=== PATIENT | male | born 1945 | race Caucasian/White ===

== ENCOUNTER → 2016-11-06 | Outpatient (CLI) | payer MEDICARE ==
--- NOTE | 2016-11-06 09:48 | BD ---
EXAMINATION TYPE: MG DEXA axial skeleton. DATE OF EXAM: 11/06/2016 8:28 AM COMPARISON: NONE CLINICAL HISTORY: Height: 70.5 IN Weight: 240 LBS FRAX RISK QUESTIONS: Alcohol (3 or more units per day): NO Family History (Parent hip fracture): YES MOTHER Glucocorticoids (More than 3mos): NO (Ex: prednisone, prednisolone, methylprednisolone, dexamethasone, and hydrocortisone). History of Fracture in Adulthood: NO Secondary Osteoporosis: 1. Type 1 Diabetes: NO 2. Hyperthyroidism: NO 3. Menopause before 45: 4. Malnutrition: NO 5. Chronic liver disease: NO Rheumatoid Arthritis: NO Current Tobacco Use: NO RISK FACTORS HISTORY OF: Active: YES Diet low in dairy products/other sources of calcium: YES MEDICATIONS: Additional Medications: VIT D, HCTZ, MULTI VIT, CRESTOR, MAGNESIUM, OMEPRAZOLE, EXAM MEASUREMENTS: Bone mineral densitometry was performed using the [employer] System. Bone mineral density as measured about the Lumbar spine is: ----- L1-L4(G/cm2): 1.062 T Score Values are as follows: ----- L2: -1.8 ----- L3: -0.5 ----- L4: -0.6 ----- L1-L4: -1.0 Bone mineral density BASELINE Bone mineral density about the R hip (g/cm2): 0.929 Bone mineral density about the L hip (g/cm2): 0.829 T Score values are as follows: -----R Neck: -0.8 -----L Neck: -1.5 -----R Intertrochanter: 0.7 -----L Intertrochanter: 0.4 Bone mineral density BASELINE IMPRESSION: Osteopenia (T Score between -2.5 and -1 as noted by T score values There is slightly increased risk of fracture and the patient may be considered for treatment. Re-Screen 1-2 years. NOTE: T-SCORE=SD OF THE YOUNG ADULT MEAN.
== END | disposition home or self-care (01) ==
LOC: RADBDWWP 08:00
PROVIDERS: ATTEND Family Medicine
DX: M85.80 Other specified disorders of bone density and structure, unspecified site (principal)
CPT/HCPCS: 77080

== ENCOUNTER → 2017-01-14 | Outpatient (CLI) | payer MEDICARE ==
--- NOTE | 2017-01-14 15:58 | NM ---
EXAMINATION TYPE: NM parathyroid w/spect DATE OF EXAM: 01/14/2017 COMPARISON: NONE HISTORY: Hypercalcemia TECHNIQUE: Following administration of 25.4 mCi Tc99m Sestamibi. Anterior projection images of the neck and ches t were obtained 10 minutes and 3 hours post injection. SPECT images of the neck and chest were obtai marcie and reconstructed in three axes. FINDINGS: Thyroid tracer washout: Delayed images demonstrate near-complete tracer washout from the thyroid. Parathyroid uptake: None. The two-hour delayed images do not demonstrate any focal abnormal persisten t uptake in the region of the parathyroid glands to suggest parathyroid adenoma. Normal uptake: There is physiological tracer uptake in the myocardium, liver, salivary glands, and th yroid gland. IMPRESSION: Normal parathyroid imaging study. No evidence for mediastinal uptake to suggest mediastinal parathyro id adenoma
== END | disposition home or self-care (01) ==
LOC: RADNMMAIN 11:28
PROVIDERS: ATTEND Otolaryngology
DX: E83.52 Hypercalcemia (principal)
CPT/HCPCS: 83970; 78071; A9500

== ENCOUNTER 2017-01-31 12:06 | Day surgery (SDC) | payer MEDICARE ==
[2017-01-31 13:45] LABS: ALT 35 U/L (21-72); AST 31 U/L (17-59); Alkaline Phosphatase 92 U/L (38-126); Anion Gap 14 mmol/L; Blood Urea Nitrogen 15 mg/dL (9-20); Carbon Dioxide 23 mmol/L (22-30); Chloride 105 mmol/L (98-107); Glucose 95 mg/dL (74-99); Non-African American GFR(MDRD) >60 (>60 ml/min/1.73 sqM); Potassium 4.1 mmol/L (3.5-5.1); Sodium 142 mmol/L (137-145); Total Bilirubin 1.4 mg/dL (0.2-1.3); Total Protein 7.6 g/dL (6.3-8.2)
[2017-01-31 14:24] VITALS: PULSE 74; TEMP 97.8
[2017-01-31 14:29] VITALS: BP 164/74; RESP 16
--- NOTE | 2017-01-31 14:34 | US ---
EXAMINATION TYPE: US FNA thyroid DATE OF EXAM: 01/31/2017 COMPARISON: NONE HISTORY: Thyroid nodule, E04.1 Maximal barrier technique was utilized. Ultrasound using sterile technique. The skin overlying the no dule was localized with ultrasound and the overlying skin prepped and draped. Lidocaine used for loca l anesthesia. 5 passes with a 25-gauge needle were made into the nodule under ultrasound guidance. As pirate specimen submitted to cytology. Following the procedure hemostasis achieved. No immediate comp lication IMPRESSION: Status post ultrasound-guided fine-needle aspiration of thyroid nodule, pathology pending .
== END 2017-01-31 14:05 | disposition home or self-care (01) ==
LOC: RADPROMAIN 12:06
PROVIDERS: ATTEND Otolaryngology
DX: E04.1 Nontoxic single thyroid nodule (principal); J45.909 Unspecified asthma, uncomplicated; E83.52 Hypercalcemia; K21.9 Gastro-esophageal reflux disease without esophagitis; E78.00 Pure hypercholesterolemia, unspecified; Z87.891 Personal history of nicotine dependence; Z79.899 Other long term (current) drug therapy
CPT/HCPCS: 10022; 36415; 76942; 80053; 82306; 83970; 88173; 88305

== ENCOUNTER → 2018-07-25 | Outpatient (CLI) | payer MEDICARE ==
--- NOTE | 2018-07-25 12:25 | US ---
EXAMINATION TYPE: US abdomen complete DATE OF EXAM: 07/25/2018 COMPARISON: NONE CLINICAL HISTORY: R10.11 upper right quadrant pain. Right flank pain for 1.5 years. History of cholel ithiasis EXAM MEASUREMENTS: Liver Length: 15.8 cm Gallbladder Wall: 0.3 cm CBD: 0.5 cm Spleen: 8.6 cm Right Kidney: 11.3 x 5.3 x 5.0 cm Left Kidney: 10.9 x 5.5 x 4.6 cm Technical limitations due to large amount of overlying bowel content Pancreas: Obscured by bowel gas Liver: There is increased echogenicity of the hepatic parenchyma with diminished visualization of th e portal triads most commonly relating to hepatic steatosis and limiting evaluation for underlying he patic masses. Gallbladder: multiple stones Evidence for sonographic Sneed's sign: no CBD: appears wnl as visualized Spleen: appears wnl as visualized Right Kidney: no evidence of hydronephrosis Left Kidney: no evidence of hydronephrosis Upper IVC: wnl Abd Aorta: portions obscured by overlying bowel The intrahepatic portion of the IVC and proximal abdominal aorta are within normal limits. There is no evidence of cholelithiasis. Common bile duct is unremarkable. The visualized portions of the arce creas are homogenous. The spleen is unremarkable. Kidneys are symmetric and free of hydronephrosis. No renal lesions are seen. IMPRESSION: 1. Cholelithiasis without sonographic evidence of acute cholecystitis. 2. Sonographic findings most compatible with hepatic steatosis appearing moderate in degree.
== END ==
LOC: RADUSWWP 10:17
PROVIDERS: ATTEND Surgery
DX: K80.20 Calculus of gallbladder without cholecystitis without obstruction (principal)
CPT/HCPCS: 76700

== ENCOUNTER → 2018-09-05 | Day surgery (SDC) | payer MEDICARE ==
[2018-09-03 11:09] VITALS: BMI 32.5
[~2018-09-05] MED LIST: BUPIVACAIN-EPI 0.5%-1:200,000 30 ML VIAL SQ ONE; DEXAMETHASONE SOD PHOSPHATE 10 MG/ML 1 ML VIAL IV ONE; GLYCOPYRROLATE 0.2 MG/ML 2 ML VIAL ONE; HEPARIN SODIUM,PORCINE 5,000 UNIT/ML 1 ML VIAL SQ ONE; HYDROcodone/APAP 5-325MG 1 EACH TAB PO ONE; HYDROcodone/APAP 5-325MG 1 EACH TAB PO PRN; HYDROmorphone 0.5 MG/0.5 ML SYRINGE IVP PRN; LACTATED RINGERS 1,000 ML IV ONE; LACTATED RINGERS 1,000 ML IV SCH; LIDOCAINE 1% 20 ML VIAL (10MG/ML) FOR IV START INTRADERMA PRN; LIDOCAINE 1% INJ 10MG/ML (20 ML MDV) ONE; MIDAZOLAM (PF) 2 MG/2 ML VIAL IV PRN; MIDAZOLAM 2 MG/2 ML VIAL ONE; NALOXONE 0.4 MG/ML 1 ML VIAL IV PRN; NEOSTIGMINE 1 MG/ML 10 ML VIAL ONE; ONDANSETRON 4 MG/2 ML VIAL IVP ONE; PROPOFOL 10 MG/ML 20 ML VIAL IV ONE; ROCURONIUM BROMIDE 10 MG/ML 10 ML VIAL IV ONE; SCOPOLAMINE 1.5MG/72HR PATCH TRANSDERM ONE; SUCCINYLCHOLINE CHLORIDE 100 MG/5 ML SYR IV ONE; ceFAZolin IN SWFI 2 GM/20 ML SYRINGE IVP ONE; ePHEDrine SULFATE/0.9% NACL/PF 50 MG/5 ML SYRINGE IV ONE; fentaNYL (PF) 50 MCG/ML 2 ML AMP ONE
--- NOTE | 2018-09-05 08:14 | P.PCN ---
Date of Procedure: 09/05/18 Procedure(s) Performed: PREOPERATIVE DIAGNOSIS: Colon cancer screening POSTOPERATIVE DIAGNOSIS: Diverticulosis PROCEDURE: Colonoscopy ANESTHESIA: MAC SURGEON: Pete Richmond M.D. SPECIMENS: None ENDOSCOPIC PROCEDURE: The patient was placed on the endoscopy table in the left decubitus position. The Olympus colonoscope was inserted into the anus and passed under direct visualization to the base of the cecum. The appendiceal orifice was visualized. From that point the scope was slowly withdrawn inspecting all surfaces carefully. There were no neoplastic inflammatory or polypoid lesions throughout the cecum, ascending, transverse, descending, sigmoid and rectum. There was mild left-sided diverticulosis noted. Digital rectal examination was normal. The patient was taken to the recovery room in stable condition per anesthesia guidelines. RECOMMENDATIONS: increase fiber. Follow-up colonoscopy in 10 years.
--- NOTE | 2018-09-05 10:32 | P.GSHP ---
History of Present Illness H&P Date: 09/05/18 Chief Complaint: Chronic cholecystitis Patient here today for laparoscopic cholecystectomy. Patient is a history of right-sided back and flank pain for the last year and a half. Patient underwent a CAT scan March 2017 showing multiple gallstones. No nausea or vomiting. Denies any change in the color of his skin urine or stool. Past Medical History Past Medical History: Asthma, GERD/Reflux, Hyperlipidemia, Hypertension, Thyroid Disorder Additional Past Medical History / Comment(s): HAD BLOOD CLOT IN "MINOR VEIN" History of Any Multi-Drug Resistant Organisms: None Reported Past Surgical History: Appendectomy, Hernia Repair Additional Past Surgical History / Comment(s): PARATHYROID REMOVED, COLONOSCOPY 2011- POLYP Past Anesthesia/Blood Transfusion Reactions: No Reported Reaction Smoking Status: Former smoker - Past Family History Sister(s) Family Medical History: Cancer Medications and Allergies Home Medications Medication Instructions Recorded Confirmed Type Omeprazole [PriLOSEC] 20 mg PO AC-BRKFST 10/21/14 09/05/18 History Aspirin [Adult Low Dose Aspirin EC] 81 mg PO DAILY 01/31/17 09/03/18 History Calcium Carbonate [Calcium] 600 mg PO DAILY 09/03/18 09/05/18 History Cholecalciferol (Vitamin D3) 2,000 unit PO DAILY 09/03/18 09/05/18 History [Vitamin D3] Inhaler 2 puff INHALATION DIRECTED PRN 09/03/18 09/05/18 History Lisinopril-Hctz 10-12.5 mg 1 tab PO DAILY 09/03/18 09/05/18 History [Zestoretic 10-12.5] Pravastatin Sodium [Pravachol] 20 mg PO DAILY 09/03/18 09/05/18 History Allergies Allergy/AdvReac Type Severity Reaction Status Date / Time No Known Allergies Allergy Verified 09/05/18 10:23 Surgical - Exam Vital Signs Temp Pulse Resp BP Pulse Ox 97.9 F 99 16 184/89 94 L 09/05/18 10:20 09/05/18 10:20 09/05/18 10:20 09/05/18 10:20 09/05/18 10:20 Physical exam: General: Well-developed, well-nourished HEENT: Normocephalic, sclerae nonicteric Abdomen: Nontender, nondistended Extremities: No edema Neuro: Alert and oriented Assessment and Plan (1) Chronic cholecystitis Narrative/Plan: Will proceed with laparoscopic cholecystectomy this time. Risks of bleeding, infection, bile leak, bile duct injury, retained common bile duct stone, trocar injury, conversion to an open procedure, hernia, anesthesia related complications were reviewed. The patient understands and wishes to proceed. Current Visit: Yes Status: Acute Code(s): K81.1 - CHRONIC CHOLECYSTITIS SNOMED Code(s): 36564842
[2018-09-05 12:10] VITALS: TEMP 97.7
--- NOTE | 2018-09-05 12:18 | P.OP ---
Date of Procedure: 09/05/18 Procedure(s) Performed: PREOPERATIVE DIAGNOSIS: Chronic cholecystitis POSTOPERATIVE DIAGNOSIS: Same PROCEDURE: Laparoscopic cholecystectomy SURGEON: Basilio EBL: Minimal see anesthesia record ANESTHESIA: Gen. COMPLICATIONS: None OPERATIVE PROCEDURE: The patient was brought and placed on the operating room table in the supine position. The patient was placed under general anesthesia at that time. The abdomen was prepped and draped in the usual sterile fashion. A small vertical infraumbilical incision was made. The fascia was grasped with the Vandana forceps. The fascia was retracted anteriorly. The Veress needle was advanced into the peritoneal cavity. The saline drop test was normal. Insufflation took place up to 15 mmHg. A 5 mm optical trocar was advanced and the peritoneal cavity. 2 additional 5 mm trochars were placed in the right upper quadrant under direct visualization. A 12 mm trocar was advanced into the epigastric incision site. The gallbladder was retracted superiorly and laterally. The peritoneum overlying the infundibulum was bluntly dissected. The patient's cystic duct was visualized. The junction between the cystic duct common and hepatic duct was identified. The cystic duct was then divided after placement of 3 12 mm clips on the patient's side and one on the specimen side. The cystic artery was identified and clipped as well. A small vessel was seen along the gallbladder fossa and clipped as well. The gallbladder was then removed from the liver bed using electrocautery. The gallbladder was then removed from the epigastric trocar site with an Endo Catch bag. The gallbladder fossa was irrigated with saline. There was no evidence of any bleeding or biliary drainage seen. The fascia at the 12 millimeter site was closed using a Armando-Arthur 0 Vicryl stitch. The trochars were then removed. The skin at all 4 sites was closed using a 4-0 Monocryl stitch. Skin glue was utilized on the incision sites. At the end of this procedure the sponge and needle counts were correct. DISPOSITION: Stable to the recovery room
[2018-09-05 13:43] VITALS: RESP 18
[2018-09-05 14:17] VITALS: BP 122/66; PULSE 70
== END ==
LOC: OR 09:59
PROVIDERS: ATTEND Surgery
DX: K80.10 Calculus of gallbladder with chronic cholecystitis without obstruction (principal); J45.909 Unspecified asthma, uncomplicated; K21.9 Gastro-esophageal reflux disease without esophagitis; E78.5 Hyperlipidemia, unspecified; I10 Essential (primary) hypertension; E89.2 Postprocedural hypoparathyroidism; Z79.82 Long term (current) use of aspirin; Z79.899 Other long term (current) drug therapy; Z87.891 Personal history of nicotine dependence; Z86.010 Personal history of colon polyps
CPT/HCPCS: 88304; 47562; J2250; J1644; J1100; J2710; J2405; J2001; J3010; J0330; J2704; J0690

== ENCOUNTER → 2020-01-04 | Outpatient (CLI) | payer MEDICARE | END | disposition home or self-care (01) | LOC: LABWHC1 14:08 | PROVIDERS: ATTEND Internal Medicine Gastroenterology | DX: Z11.59 Encounter for screening for other viral diseases (principal) ==

== ENCOUNTER 2020-01-06 08:42 | Day surgery (SDC) | payer MEDICARE ==
[2020-01-05 09:19] VITALS: BMI 31.6
[~2020-01-06 08:42] MED LIST changes: -BUPIVACAIN-EPI 0.5%-1:200,000 30 ML VIAL SQ ONE; -DEXAMETHASONE SOD PHOSPHATE 10 MG/ML 1 ML VIAL IV ONE; -GLYCOPYRROLATE 0.2 MG/ML 2 ML VIAL ONE; -HEPARIN SODIUM,PORCINE 5,000 UNIT/ML 1 ML VIAL SQ ONE; -HYDROcodone/APAP 5-325MG 1 EACH TAB PO ONE; -HYDROcodone/APAP 5-325MG 1 EACH TAB PO PRN; -HYDROmorphone 0.5 MG/0.5 ML SYRINGE IVP PRN; -LACTATED RINGERS 1,000 ML IV ONE; +LIDOCAINE 1% (10MG/ML) FOR IV START INTRADERMA PRN; -LIDOCAINE 1% 20 ML VIAL (10MG/ML) FOR IV START INTRADERMA PRN; -LIDOCAINE 1% INJ 10MG/ML (20 ML MDV) ONE; -MIDAZOLAM (PF) 2 MG/2 ML VIAL IV PRN; -MIDAZOLAM 2 MG/2 ML VIAL ONE; -NALOXONE 0.4 MG/ML 1 ML VIAL IV PRN; -NEOSTIGMINE 1 MG/ML 10 ML VIAL ONE; -ONDANSETRON 4 MG/2 ML VIAL IVP ONE; -PROPOFOL 10 MG/ML 20 ML VIAL IV ONE; -ROCURONIUM BROMIDE 10 MG/ML 10 ML VIAL IV ONE; -SCOPOLAMINE 1.5MG/72HR PATCH TRANSDERM ONE; -SUCCINYLCHOLINE CHLORIDE 100 MG/5 ML SYR IV ONE; -ceFAZolin IN SWFI 2 GM/20 ML SYRINGE IVP ONE; -ePHEDrine SULFATE/0.9% NACL/PF 50 MG/5 ML SYRINGE IV ONE; -fentaNYL (PF) 50 MCG/ML 2 ML AMP ONE
[2020-01-06 09:19] VITALS: RESP 16; TEMP 97.3
[2020-01-06] MEDS ORDERED: IV FLUID CONTINUATION 1,000 ML IV ONE (09:20)
[2020-01-06] MEDS ORDERED: LIDOCAINE 1% (10MG/ML) FOR IV START INTRADERMA ONE (09:20)
[2020-01-06] MEDS ORDERED: PROPOFOL 10 MG/ML 20 ML VIAL IV ONE (09:41)
[2020-01-06] MEDS ORDERED: MIDAZOLAM 2 MG/2 ML VIAL ONE (09:41)
--- NOTE | 2020-01-06 09:58 | P.PCN ---
Date of Procedure: 01/06/20 Procedure(s) Performed: BRIEF HISTORY: Patient is a 74-year-old pleasant male scheduled for an elective colonoscopy as a part of variation of prior history of colon polyps. Last colonoscopy was 5 years ago and was noted to have a tubular adenoma. PROCEDURE PERFORMED: Colonoscopy snare polypectomy. PREOPERATIVE DIAGNOSIS: History of colon polyps. IV sedation per Anesthesia. PROCEDURE: After informed consent was obtained, the patient, was brought into the endoscopy unit. IV sedation was administered by Anesthesia under continuous monitoring. Digital rectal examination was normal. Initially the Olympus CF-160 flexible video colonoscope was then inserted in the rectum, gradually advanced into the cecum without any difficulty. Careful examination was performed as the scope was gradually being withdrawn. Ileocecal valve and the appendiceal orifice were visualized and appeared normal. Prep was excellent. In the base of the cecum there was a 1 cm polyp that was removed by snare polypectomy Mucosa of the cecum, ascending colon, transverse colon, appeared normal. In the distal transverse colon there was a 5 mm sessile polyp removed by snare polypectomy. Rest of the descending colon, sigmoid colon, and rectum appeared normal. Scattered sigmoid diverticulosis seen. Retroflexion was performed in the rectum and no lesions were seen. The patient tolerated the procedure well. IMPRESSION: 1 cm broad-based cecal polyp is post polypectomy 5 mm sessile transverse colon polyp status post snare polypectomy Scattered sigmoid diverticulosis RECOMMENDATIONS: Findings of this examination were discussed with the patient as well as his family. He was advised to follow with the biopsy results. If the biopsy shows an adenoma he can have a repeat colonoscopy in 3 years..
[2020-01-06 10:14] VITALS: BP 114/71; PULSE 55
== END 2020-01-06 10:38 | disposition home or self-care (01) ==
LOC: ORWHC2ENDO 08:42
PROVIDERS: ATTEND Internal Medicine Gastroenterology
DX: Z12.11 Encounter for screening for malignant neoplasm of colon (principal); D12.0 Benign neoplasm of cecum; K57.30 Diverticulosis of large intestine without perforation or abscess without bleeding; Z86.010 Personal history of colon polyps; Z79.82 Long term (current) use of aspirin; Z79.899 Other long term (current) drug therapy; I10 Essential (primary) hypertension; E78.5 Hyperlipidemia, unspecified; Z86.718 Personal history of other venous thrombosis and embolism; J45.909 Unspecified asthma, uncomplicated; E89.2 Postprocedural hypoparathyroidism; K21.9 Gastro-esophageal reflux disease without esophagitis; K57.92 Diverticulitis of intestine, part unspecified, without perforation or abscess without bleeding
CPT/HCPCS: 88305; 45385; J2250; J2704

== ENCOUNTER → 2020-08-24 | Outpatient (CLI) | payer MEDICARE ==
--- NOTE | 2020-08-24 10:43 | XR ---
EXAMINATION TYPE: XR shoulder complete RT DATE OF EXAM: 08/24/2020 COMPARISON: NONE HISTORY: Pain TECHNIQUE: Shoulder examined in 3 views FINDINGS: The humeral head articulates with the glenoid. The acromio-clavicular junction is normal. No acute fractures or dislocations are evident. A follow up study can be performed 7-10 days from acute trauma for continued pain. IMPRESSION: 1. Normal three-view right Shoulder
== END | disposition home or self-care (01) ==
LOC: RADXRYALE 10:19
PROVIDERS: ATTEND Physician Assistant Medical
DX: M25.511 Pain in right shoulder (principal)

== ENCOUNTER → 2021-07-18 | Outpatient (CLI) | payer MEDICARE ==
--- NOTE | 2021-07-18 11:27 | XR ---
EXAMINATION TYPE: XR lumbosacral spine 5 views DATE OF EXAM: 07/18/2021 Comparison: None Clinical History: 75 year old R202, G629 PARESTHESIA, POLYNEUROPATHY Findings: Mild degenerative disc disease throughout the lumbar spine. Slightly accentuated lower lumbar lordosi s. Facet arthropathy mid to lower lumbar spine. Vertebral body heights are preserved and alignment is maintained. Apical scarring calcifications throughout the mid and lower abdominal aorta with suggest ion of a mild aneurysm up to 3.1 cm. Impression: 1. Hypertrophic facet arthropathy mid to lower lumbar spine. No vertebral compression collapse or mal alignment. Mild multilevel degenerative disc disease. 2. Possible AAA at 3.1 cm. Consider screening abdominal aortic ultrasound.
== END | disposition home or self-care (01) ==
LOC: RADXRYALE 09:34
PROVIDERS: ATTEND Physician Assistant Medical
DX: M47.897 Other spondylosis, lumbosacral region (principal); M51.37 Other intervertebral disc degeneration, lumbosacral region
CPT/HCPCS: 72110

== ENCOUNTER → 2022-01-03 | Outpatient (CLI) | payer MEDICARE ==
--- NOTE | 2022-01-03 08:22 | US ---
EXAMINATION TYPE: US duplex aorta DATE OF EXAM: 01/03/2022 COMPARISON: CLINICAL HISTORY: R93.1 ABN FINDING ON DX IMAGING OF HEART AND COR C. HTN controlled with meds EXAM MEASUREMENTS: Abdominal Aorta: Proximal: 2.3 x 2.0 cm Mid: 1.8 x 1.9 cm Distal: 2.1 x 2.5 cm Bifurcation: Right= 1.0 x 1.1 cm Left= 0.9 x 1.1 cm No AAA visualized at time of scan. Distal aorta appears slightly ectatic. IMPRESSION: Ectasia of the distal aorta with no diagnostic evidence of aneurysm.
== END | disposition home or self-care (01) ==
LOC: RADUSWWP 07:27
PROVIDERS: ATTEND Family Medicine
DX: I77.811 Abdominal aortic ectasia (principal)
CPT/HCPCS: 93979

== ENCOUNTER → 2022-06-18 | Outpatient (CLI) | payer MEDICARE ==
--- NOTE | 2022-06-18 11:57 | XR ---
EXAMINATION TYPE: XR chest 2V DATE OF EXAM: 06/18/2022 COMPARISON: NONE HISTORY: Cough. TECHNIQUE: Frontal and lateral views of the chest are obtained. FINDINGS: There is left basilar horizontal increased linear opacity on frontal view left well-seen o n lateral view. Suggestion of underlying emphysematous change bilaterally with increased retrosternal airspace. Right lung remains clear. The cardiac silhouette size is within normal limits. The osseo us structures are intact. Cholecystectomy clips are noted on lateral view. IMPRESSION: Left basilar opacity could reflect acute infiltrate and/or atelectasis.
== END | disposition home or self-care (01) ==
LOC: RADXRYALE 11:21
PROVIDERS: ATTEND Physician Assistant Medical
DX: R05.9 Cough, unspecified (principal)
CPT/HCPCS: 71046

== ENCOUNTER → 2022-06-26 | Outpatient (CLI) | payer MEDICARE ==
--- NOTE | 2022-06-26 19:34 | US ---
EXAMINATION TYPE: US thyroid st tissue head/neck DATE OF EXAM: 06/26/2022 COMPARISON: None CLINICAL HISTORY: 76-year-old male L04.0 ACUTE LYMPHADENITIS OF FACE, HEAD AND R59.0 LOCALIZED. Enla rged lymph nodes. TECHNIQUE: Multiple sonographic images of the bilateral necks are obtained for assessment of cervical lymphadenopathy. FINDINGS: Sales Agent notes: No abnormalities visualized. The provided images showed no abnormally enlarged lymph nodes are otherwise any discrete mass. IMPRESSION: No discrete cervical lymphadenopathy or neck mass appreciated by ultrasound. Clinical follow-up recom mended. If any enlarging palpable area is detected, the patient can be rescanned.
== END | disposition home or self-care (01) ==
LOC: RADUSWWP 15:10
PROVIDERS: ATTEND Family Medicine
DX: L04.0 Acute lymphadenitis of face, head and neck (principal)
CPT/HCPCS: 76536

== ENCOUNTER → 2022-07-18 | Outpatient (CLI) | payer MEDICARE ==
--- NOTE | 2022-07-18 15:35 | XR ---
EXAMINATION TYPE: XR chest 2V DATE OF EXAM: 07/18/2022 COMPARISON: 06/18/2022 INDICATION: Cough and asthma shortness of breath TECHNIQUE: Frontal and lateral views of the chest are obtained. FINDINGS: The heart size is normal. The pulmonary vasculature is normal. The lungs are clear. There is flattening the diaphragms suggestive for COPD. IMPRESSION: 1. No acute pulmonary process. 2. COPD
== END | disposition home or self-care (01) ==
LOC: RADXRYALE 14:27
PROVIDERS: ATTEND Physician Assistant
DX: J44.9 Chronic obstructive pulmonary disease, unspecified (principal); J45.20 Mild intermittent asthma, uncomplicated
CPT/HCPCS: 71046

== ENCOUNTER 2022-11-27 13:52 | Emergency (ER) | payer MEDICARE ==
[2022-11-27 13:56] VITALS: TEMP 97.6
[2022-11-27 14:55] LABS: Appearance,Urine Clear (Clear); Bilirubin,Urine Negative (Negative); Blood,Urine Negative (Negative); Color,Urine Yellow; Glucose,Urine (UA) Negative (Negative); Ketones,Urine Negative (Negative); Leukocyte Esterase,Urine Large (Negative); Mucus,Urine Occasional /hpf; Nitrite,Urine Negative (Negative); PH, Urine 5.5 (5.0-8.0); Protein,Urine Trace (Negative); RBC,Urine 2 /hpf (0-5); Specific Gravity,Urine 1.025 (1.001-1.035); Urobilinogen,Urine <2.0 mg/dL (<2.0); WBC,Urine 24 /hpf (0-5)
[2022-11-27] MEDS ORDERED: SODIUM CHLORIDE 0.9% 1,000 ML IV STA (15:21)
--- NOTE | 2022-11-27 15:26 | ED ---
Abdominal Pain HPI - General Chief Complaint: Abdominal Pain Stated Complaint: abd pain Time Seen by Provider: 11/27/22 15:09 Source: patient, RN notes reviewed, old records reviewed Mode of arrival: ambulatory Limitations: no limitations - History of Present Illness Initial Comments: This is a 77-year-old male to the ER today. Presents today for evaluation of abdominal pain he does have occasional history of abdominal pain this pain is been going on for about 4-5 days patient presents with who is at bedside. Patient told his about the abdominal pain here in the ER and was sent to here by his for further evaluation management patient has no fevers no travel history no sick contacts. MD Complaint: abdominal pain -: days(s) (5) Location: LLQ Radiation: L flank Migration to: suprapubic Severity: moderate Severity scale (1-10): 4 Quality: cramping, sharp Consistency: intermittent Improves With: nothing Worsens With: nothing Associated Symptoms: nausea Treatments Prior to Arrival: other (0) - Related Data Home Medications Medication Instructions Recorded Confirmed Omeprazole [PriLOSEC] 20 mg PO DAILY 10/21/14 11/27/22 Aspirin [Adult Low Dose Aspirin EC] 81 mg PO DAILY 01/31/17 11/27/22 Calcium Carbonate [Calcium] 600 mg PO DAILY 09/03/18 11/27/22 Donepezil HCl [Aricept] 10 mg PO DAILY 01/05/20 11/27/22 flaxseed oiL [Flaxseed Oil] 1,000 mg PO HS 01/05/20 11/27/22 Albuterol Sulfate [Albuterol 1 - 2 puff INHALATION RT-Q6H PRN 11/27/22 11/27/22 Sulfate Hfa] Cholecalciferol [Vitamin D3 (25 50 mcg PO DAILY 11/27/22 11/27/22 Mcg = 1000 Iu)] Lisinopril-Hctz 20-12.5 mg 1 tab PO DAILY 11/27/22 11/27/22 [Zestoretic 20-12.5] Magnesium 200 mg PO DAILY 11/27/22 11/27/22 Multivit-Min/FA/Lycopen/Lutein 1 tab PO DAILY 11/27/22 11/27/22 [Centrum Silver Men Tablet] Rosuvastatin Calcium [Crestor] 40 mg PO HS 11/27/22 11/27/22 Previous Rx's Medication Instructions Recorded Amoxic-Pot Clav 875-125Mg 1 tab PO Q12HR #20 tablet 11/27/22 [Augmentin 875-125] Allergies Allergy/AdvReac Type Severity Reaction Status Date / Time shingles booster vaccine AdvReac Unknown Rash/Hives Uncoded 11/27/22 16:49 Review of Systems ROS Statement: Those systems with pertinent positive or pertinent negative responses have been documented in the HPI. ROS Other: All systems not noted in ROS Statement are negative. Past Medical History Past Medical History: Asthma, GERD/Reflux, Hyperlipidemia, Hypertension, Thyroid Disorder Additional Past Medical History / Comment(s): HAD BLOOD CLOT IN "MINOR VEIN" History of Any Multi-Drug Resistant Organisms: None Reported Past Surgical History: Appendectomy, Hernia Repair Additional Past Surgical History / Comment(s): PARATHYROID REMOVED, COLONOSCOPY 2011-08 POLYP Past Anesthesia/Blood Transfusion Reactions: No Reported Reaction Past Psychological History: No Psychological Hx Reported Smoking Status: Never smoker Past Alcohol Use History: None Reported Past Drug Use History: None Reported - Past Family History Sister(s) Family Medical History: Cancer General Exam Limitations: no limitations General appearance: alert, in no apparent distress Head exam: Present: atraumatic, normocephalic, normal inspection Eye exam: Present: normal appearance, PERRL, EOMI. Absent: scleral icterus, conjunctival injection, periorbital swelling ENT exam: Present: normal exam, mucous membranes moist Neck exam: Present: normal inspection. Absent: tenderness, meningismus, lymphadenopathy Respiratory exam: Present: normal lung sounds bilaterally. Absent: respiratory distress, wheezes, rales, rhonchi, stridor Cardiovascular Exam: Present: regular rate, normal rhythm, normal heart sounds. Absent: systolic murmur, diastolic murmur, rubs, gallop, clicks GI/Abdominal exam: Present: soft, tenderness, normal bowel sounds. Absent: distended, guarding, rebound, rigid Extremities exam: Present: normal inspection, full ROM, normal capillary refill. Absent: tenderness, pedal edema, joint swelling, calf tenderness Back exam: Present: normal inspection Neurological exam: Present: alert, oriented X3, CN II-XII intact Psychiatric exam: Present: normal affect, normal mood Skin exam: Present: warm, dry, intact, normal color. Absent: rash Course Vital Signs 11/27/22 11/27/22 13:54 17:13 Temperature 97.6 F Pulse Rate 76 61 Respiratory 20 18 Rate Blood Pressure 146/79 147/75 O2 Sat by Pulse 98 100 Oximetry - Reevaluation(s) Reevaluation #1: 11/27/22 18:47 Medical record is reviewed Reevaluation #2: 11/27/22 18:47 Patient has improved abdominal pain here in the ER Reevaluation #3: 11/27/22 18:47 Patient informed results and questions answered Reevaluation #4: 11/27/22 18:47 Was pt. sent in by a medical professional or institution? @ -no Did you speak to anyone other than the patient for history? @ -no Did you review nursing and triage notes? @ -agree Were old charts reviewed? @ -no Differential Diagnosis? @ -abdominal pain EKG interpreted by me (3pts min.)? @ -no X-rays interpreted by me (1pt min.)? @ -no CT interpreted by me (1pt min.)? @ -no U/S interpreted by me (1pt. min.)? @ -no What testing was considered but not performed? (CT, X-rays, U/S, labs)? Why? @ -no What meds were considered but not given? Why? @ -no Did you discuss the management of the patient with other professionals? @ -no Did you reconcile home meds? @ -yes Was smoking cessation discussed for >3mins.? @ -no Was critical care preformed (if so, how long)? @ -no Were there social determinants of health that impacted care today? How? (Homelessness, low income, unemployed, alcoholism, drug addiction, transportation, low edu. Level, literacy, decrease access to med. care, group home, rehab)? @ -no Was there de-escalation of care discussed even if they declined? (Discuss DNR or withdrawal of care, Hospice)? @ -no What co-morbidities impacted this encounter? (DM, HTN, Smoking, COPD, CAD, C ancer, CVA,, sleep apnea, morbid obesity) @ -no Was patient admitted / discharged? @ -dc Undiagnosed new problem with uncertain prognosis? @ -no Drug Therapy requiring intensive monitoring for toxicity (Heparin, Nitro, Insulin, Cardizem)? @ -no Were any procedures done? @ -no Diagnosis/symptom? @ -abdominal pain Acute, or Chronic, or Acute on Chronic? @ -acute Uncomplicated (without systemic symptoms) or Complicated (systemic symptoms)? @ -uncomplicated Side effects of treatment? @ -no Exacerbation, Progression, or Severe Exacerbation] @ -no Poses a threat to life or bodily function? @ -no Reevaluation #5: 11/27/22 18:48 Differential Abdominal Pain Men: Appendicitis, cholecystitis, diverticulosis, ischemic bowel, pancreatitis, hepatitis, UTI, gastroenteritis, AAA, incarcerated hernia, bowel obstruction, constipation, inflammatory bowel, hepatitis, peptic ulcer disease, splenic infarction, perforated viscus, testicular torsion, this is not meant to be an all-inclusive list Medical Decision Making - Medical Decision Making 77 male DF for evaluation of abdominal pain positive for colitis on computed tomography scan with epiploic appendicitis. Possibly mild urinary tract infection. Patient will be covered in treated for UTI and colitis, pain is controlled and can be discharged home - Lab Data Result diagrams: 11/27/22 15:37 11/27/22 15:37 Lab Results 11/27/22 11/27/22 11/27/22 Range/Units 14:03 15:37 15:37 WBC 9.2 (3.8-10.6) k/uL RBC 4.91 (4.30-5.90) m/uL Hgb 14.9 (13.0-17.5) gm/dL Hct 43.2 (39.0-53.0) % MCV 87.9 (80.0-100.0) fL MCH 30.3 (25.0-35.0) pg MCHC 34.5 (31.0-37.0) g/dL RDW 13.4 (11.5-15.5) % Plt Count 299 (150-450) k/uL MPV 7.1 Neutrophils % 68 % Lymphocytes % 22 % Monocytes % 6 % Eosinophils % 1 % Basophils % 0 % Neutrophils # 6.3 (1.3-7.7) k/uL Lymphocytes # 2.0 (1.0-4.8) k/uL Monocytes # 0.6 (0-1.0) k/uL Eosinophils # 0.1 (0-0.7) k/uL Basophils # 0.0 (0-0.2) k/uL Sodium 136 L (137-145) mmol/L Potassium 4.0 (3.5-5.1) mmol/L Chloride 98 (98-107) mmol/L Carbon Dioxide 27 (22-30) mmol/L Anion Gap 11 mmol/L BUN 21 H (9-20) mg/dL Creatinine 1.18 (0.66-1.25) mg/dL Est GFR (CKD-EPI)AfAm 68 (>60 ml/min/1.73 sqM) Est GFR (CKD-EPI)NonAf 59 (>60 ml/min/1.73 sqM) Glucose 132 H (74-99) mg/dL Calcium 9.2 (8.4-10.2) mg/dL Total Bilirubin 1.8 H (0.2-1.3) mg/dL AST 32 (17-59) U/L ALT 24 (4-49) U/L Alkaline Phosphatase 61 (38-126) U/L Total Protein 7.7 (6.3-8.2) g/dL Albumin 4.2 (3.5-5.0) g/dL Amylase 60 (30-110) U/L Lipase 106 (23-300) U/L Urine Color Yellow Urine Appearance Clear (Clear) Urine pH 5.5 (5.0-8.0) Ur Specific [place] 1.025 (1.001-1.035) Urine Protein Trace H (Negative) Urine Glucose (UA) Negative (Negative) Urine Ketones Negative (Negative) Urine Blood Negative (Negative) Urine Nitrite Negative (Negative) Urine Bilirubin Negative (Negative) Urine Urobilinogen <2.0 (<2.0) mg/dL Ur Leukocyte Esterase Large H (Negative) Urine RBC 2 (0-5) /hpf Urine WBC 24 H (0-5) /hpf Urine Mucus Occasional H (None) /hpf - Radiology Data Radiology results: report reviewed (CT abdomen and pelvis is positive for colitis and epiploic appendicitis), image reviewed Disposition Clinical Impression: Colitis, Diverticulitis, Epiploic appendagitis Disposition: HOME SELF-CARE Condition: Good Instructions (If sedation given, give patient instructions): Diverticulitis (ED), Epiploic Appendagitis (ED) Prescriptions: Amoxic-Pot Clav 875-125Mg [Augmentin 875-125] 1 tab PO Q12HR #20 tablet Is patient prescribed a controlled substance at d/c from ED?: No Referrals: Bryan Banda DO [Primary Care Provider] - 1-2 days Time of Disposition: 16:45
[2022-11-27 15:52] LABS: Basophils % (A) 0 %; Eosinophils # (A) 0.1 k/uL (0-0.7); Eosinophils % (A) 1 %; HCT 43.2 % (39.0-53.0); HGB 14.9 gm/dL (13.0-17.5); Lymphocytes % (A) 22 %; MCH 30.3 pg (25.0-35.0); MCHC 34.5 g/dL (31.0-37.0); MCV 87.9 fL (80.0-100.0); Mean Platelet Volume 7.1; Monocytes # (A) 0.6 k/uL (0-1.0); Monocytes % (A) 6 %; Neutrophils # (A) 6.3 k/uL (1.3-7.7); Neutrophils % (A) 68 %; Platelet Count 299 k/uL (150-450); RBC 4.91 m/uL (4.30-5.90); RDW 13.4 % (11.5-15.5); WBC 9.2 k/uL (3.8-10.6)
[2022-11-27 16:07] LABS: Albumin 4.2 g/dL (3.5-5.0); Calcium 9.2 mg/dL (8.4-10.2); Total Bilirubin 1.8 mg/dL (0.2-1.3); Total Protein 7.7 g/dL (6.3-8.2)
--- NOTE | 2022-11-27 16:14 | CT ---
EXAMINATION TYPE: CT abdomen pelvis wo con DATE OF EXAM: 11/27/2022 COMPARISON: 03/17/2014 HISTORY: 77-year-old male lower abd/pelvic pain CT DLP: 1293.4 mGycm. Automated exposure control for dose reduction was used. TECHNIQUE: Contiguous axial scanning of the abdomen and pelvis without IV contrast. Coronal and sagit ana reconstructions performed. FINDINGS: Heart normal size without pericardial effusion. Small calcified granulomas at the left base with itzel lar strandy scarring. Some underlying emphysematous changes noted in bronchial wall thickening compat ible with COPD. Moderate size hiatal hernia involving a third of the stomach and lower chest. Noncontrast evaluation of the liver and adrenal glands, kidneys, spleen, and pancreas show no gross a bnormal body. Cholecystectomy clips. No dilated small bowel, free fluid, or free air. Moderate atherosclerotic calcifications abdominal aorta and mild within the common iliac arteries. Mi ld fusiform ectasia infrarenal abdominal aorta to 2.6 cm. No mesenteric or retroperitoneal lymphadenopathy. There is sigmoid diverticulosis. Prominent pericolonic fat stranding with central fat density noted s panning approximately 10.2 cm along the right lateral margin of the mid sigmoid colon. While this is located along the colon, no significant colonic wall thickening is appreciated here. In addition, a s econd nodular area of fat stranding measuring 2.2 cm is present along the anterior wall of the descen ding colon. Bladder partially distended. Prostate gland enlargement 5.1 cm wide. No abnormal fluid collection in the pelvis or pelvic lymphadenopathy seen. Bones: Mild degenerative change of the hips. Mild degenerative change at the SI joints. [facility] in the l ower thoracic spine. IMPRESSION: 1. Sigmoid diverticulosis. There is moderate fat stranding spanning 10.2 cm adjacent to the mid sigmo id colon. Given the ovoid contour and central fat density, this may be an atypical appearance of epip loic appendagitis. Inflammation relating to acute diverticulitis is not entirely excluded but conside red less likely given the lack of any inflammatory bowel wall thickening. Short interval follow-up if no improvement with conservative therapy. 2. A second 2.2 cm nodular area of pericolonic fat stranding along the descending colon. Possible sec ond focus of epiploic appendagitis. Again, consider short interval follow-up to reassess. 3. Moderate-sized hiatal hernia. Mild prostatomegaly at 5.1 cm wide.
[2022-11-27] MEDS ORDERED: AMOXIC-POT CLAV 875MG STARTER PACK 2 TAB BTL PO STA (16:45)
[2022-11-27] MEDS ORDERED: ACET/COD 300 MG/30 MG STARTER PACK 6 TAB BTL PO STA (16:45)
[2022-11-27 17:32] VITALS: BP 147/75; PULSE 61; RESP 18
== END 2022-11-27 17:15 | disposition home or self-care (01) ==
LOC: EC 13:52
DX: K52.9 Noninfective gastroenteritis and colitis, unspecified (principal); K57.92 Diverticulitis of intestine, part unspecified, without perforation or abscess without bleeding; K63.89 Other specified diseases of intestine; J45.909 Unspecified asthma, uncomplicated; K21.9 Gastro-esophageal reflux disease without esophagitis; E78.5 Hyperlipidemia, unspecified; I10 Essential (primary) hypertension; E07.9 Disorder of thyroid, unspecified; Z88.7 Allergy status to serum and vaccine; Z90.49 Acquired absence of other specified parts of digestive tract; Z79.82 Long term (current) use of aspirin; Z79.899 Other long term (current) drug therapy
CPT/HCPCS: 36415; 74176; 80053; 81001; 82150; 83690; 85025; 87086; 96360; 99284

== ENCOUNTER → 2024-01-22 | Outpatient (CLI) | payer MEDICARE ==
--- NOTE | 2024-01-22 14:38 | CA ---
Transthoracic Echo Report Name: Rahul Diaz Age: 78 Gender: M : 1945 Exam Date: 01/22/2024 11:23 Exam Location: [facility] Ht (in): 73 Wt (lb): 242 Ordering Physician: Bryan Banda DO Attending/Referring Phys: Sophia Alexander PAC Truck Engine Technician Khloe Clement RDCS Procedure CPT: Indications: R01.1 CARDIAC MURMUR, UNSPECIFIED Cardiac Hx: Technical Quality: Fair Contrast 1: Total Dose (mL): Contrast 2: Total Dose (mL): MEASUREMENTS (Male / Female) Normal Values 2D ECHO LV Diastolic Diameter PLAX 5.4 cm 4.2 - 5.9 / 3.9 - 5.3 cm LV Systolic Diameter PLAX 3.6 cm IVS Diastolic Thickness 1.0 cm 0.6 - 1.0 / 0.6 - 0.9 cm LVPW Diastolic Thickness 0.9 cm 0.6 - 1.0 / 0.6 - 0.9 cm LV Relative Wall Thickness 0.3 RV Internal Dim ED PLAX 3.0 cm LVOT Diameter 2.2 cm LA Systolic Diameter LX 3.4 cm 3.0 - 4.0 / 2.7 - 3.8 cm LV Diastolic Volume MOD BP 110.8 cm??? 67 - 155 / 56 - 104 cm??? LV Systolic Volume MOD BP 49.6 cm??? 22 - 58 / 19 - 49 cm??? LV Ejection Fraction MOD BP 55.3 % >= 55 % LV Cardiac Index MOD BP 1425.3 cm???/min???m??? LV Diastolic Volume MOD 4C 120.9 cm??? LV Systolic Volume MOD 4C 55.0 cm??? LV Ejection Fraction MOD 4C 54.5 % LV Cardiac Index MOD 4C 1532.3 cm???/min???m??? LV Diastolic Length 4C 7.2 cm LV Systolic Length 4C 5.4 cm LV Diastolic Volume MOD 2C 97.1 cm??? LV Systolic Volume MOD 2C 42.1 cm??? LV Ejection Fraction MOD 2C 56.6 % LV Cardiac Index MOD 2C 1277.6 cm???/min???m??? LV Diastolic Length 2C 6.8 cm LV Systolic Length 2C 5.8 cm M-MODE Aortic Root Diameter MM 3.1 cm AV Cusp Separation MM 1.7 cm DOPPLER AV Peak Velocity 245.7 cm/s AV Peak Gradient 24.1 mmHg AV Mean Velocity 150.4 cm/s AV Mean Gradient 10.9 mmHg AV Velocity Time Integral 52.1 cm LVOT Peak Velocity 119.9 cm/s LVOT Peak Gradient 5.8 mmHg LVOT Velocity Time Integral 29.5 cm LVOT Stroke Volume 109.4 cm??? LVOT Stroke Volume Index 46.9 ml/m??? LVOT Cardiac Index 2544.7 cm???/min???m??? AV Area Cont Eq vti 2.1 cm??? AV Area Cont Eq pk 1.8 cm??? Mitral E Point Velocity 97.3 cm/s Mitral A Point Velocity 83.7 cm/s Mitral E to A Ratio 1.2 MV Deceleration Time 217.0 ms MV E' Velocity 8.4 cm/s Mitral E to MV E' Ratio 11.6 TR Peak Velocity 231.8 cm/s TR Peak Gradient 21.5 mmHg Right Ventricular Systolic Press 31.8 mmHg FINDINGS Left Ventricle Left ventricular ejection fraction is estimated at 55-60 %. Left ventricular cavity size normal. Left ventricular wall thickness normal. No obvious regional wall motion abnormalities. Right Ventricle Normal right ventricular size and function. Right ventricular systolic pressure within normal limits. Right Atrium Normal right atrial size. No right atrial thrombus or mass seen. Left Atrium Normal left atrial size. No left atrial thrombus or mass present. Mitral Valve Structurally normal mitral valve. No mitral stenosis, regurgitation or prolapse. Aortic Valve Trileaflet aortic valve. Mild aortic stenosis with a peak gradient of 24 mmHg and a mean gradient of 11 mmHg. Tricuspid Valve Structurally normal tricuspid valve. Mild tricuspid regurgitation. Pulmonic Valve Structurally normal pulmonic valve. No pulmonic regurgitation. Pericardium No pericardial effusion. Aorta Normal size aortic root and proximal ascending aorta. CONCLUSIONS Technically difficult study for interpretation was poorly visualized endocardium Normal LV systolic function Aortic sclerosis with mild aortic stenosis Previewed by: Dr. Mata Gutierrez MD (Electronically Signed) Final Date: 22 January 2024 14:37
== END | disposition home or self-care (01) ==
LOC: RADECHMAIN 11:11
PROVIDERS: ATTEND Family Medicine
DX: I35.0 Nonrheumatic aortic (valve) stenosis (principal); I70.0 Atherosclerosis of aorta; R01.1 Cardiac murmur, unspecified; I10 Essential (primary) hypertension; G31.84 Mild cognitive impairment of uncertain or unknown etiology; E78.2 Mixed hyperlipidemia
CPT/HCPCS: 93306

== ENCOUNTER 2024-08-03 10:45 | Day surgery (SDC) | payer MEDICARE ==
[2024-07-31 09:28] VITALS: BMI 31.8
[2024-08-03 11:13] VITALS: TEMP 97.2
[2024-08-03] MEDS: IV FLUID CONTINUATION 1,000 ML IV ONE ×2 (11:15→12:16)
[2024-08-03] MEDS: LIDOCAINE 1% (10MG/ML) FOR IV START INTRADERMA PRN (11:22)
[2024-08-03] MEDS: LACTATED RINGERS 1,000 ML IV SCH (11:22)
[2024-08-03] MEDS ORDERED: PROPOFOL 10 MG/ML 20 ML VIAL IV ONE (12:18)
--- NOTE | 2024-08-03 12:32 | P.PCN ---
Date of Procedure: 08/03/24 Procedure(s) Performed: BRIEF HISTORY: Patient is a 78-year-old pleasant white male scheduled for an elective colonoscopy as a part of evaluation for history of colon polyps. Last colonoscopy was placed and was noted to have a tubular adenoma. PROCEDURE PERFORMED: Colonoscopy snare polypectomy. PREOPERATIVE DIAGNOSIS: History of colon polyps. IV sedation per Anesthesia. PROCEDURE: After informed consent was obtained, the patient, was brought into the endoscopy unit. IV sedation was administered by Anesthesia under continuous monitoring. Digital rectal examination was normal. Initially the Olympus CF-160 flexible video colonoscope was then inserted in the rectum, gradually advanced into the cecum without any difficulty. Careful examination was performed as the scope was gradually being withdrawn. Ileocecal valve and the appendiceal orifice were visualized and appeared normal. Prep was excellent. Mucosa of the cecum, normal. Descending colon there was a 5 mm sessile polyp that was removed by cold snare polypectomy. In the descending colon there was another 5 mm sessile polyp removed by cold snare polypectomy. Rest of the ascending colon, transverse colon, descending colon, sigmoid colon, and rectum appeared normal. Scattered sigmoid diverticulosis. Retroflexion was performed in the rectum and no lesions were seen. The patient tolerated the procedure well. IMPRESSION: 5 mm ascending colon polyp status post cold snare polypectomy 5 mm descending colon polyp status post cold snare polypectomy Scattered sigmoid diverticulosis RECOMMENDATIONS: Findings of this examination were discussed with the patient as well as his family.. He was advised to follow-up with the biopsy results. The biopsy reveals adenoma he can have repeat colonoscopy in 5 years.
[2024-08-03 12:37] VITALS: RESP 16
[2024-08-03 12:55] VITALS: BP 120/75; PULSE 53
== END 2024-08-03 13:24 | disposition home or self-care (01) ==
LOC: ORWHC2ENDO 10:45
PROVIDERS: ATTEND Internal Medicine Gastroenterology
DX: Z12.11 Encounter for screening for malignant neoplasm of colon (principal); D12.2 Benign neoplasm of ascending colon; D12.4 Benign neoplasm of descending colon; K57.30 Diverticulosis of large intestine without perforation or abscess without bleeding; I10 Essential (primary) hypertension; E78.5 Hyperlipidemia, unspecified; E07.9 Disorder of thyroid, unspecified; J45.909 Unspecified asthma, uncomplicated; K21.9 Gastro-esophageal reflux disease without esophagitis; Z79.899 Other long term (current) drug therapy; Z87.891 Personal history of nicotine dependence; Z86.0101 Personal history of adenomatous and serrated colon polyps; Z88.8 Allergy status to other drugs, medicaments and biological substances
CPT/HCPCS: 88305; 45385; J2704

== ENCOUNTER 2025-01-23 18:11 | Observation (INO) | payer MEDICARE ==
--- NOTE | 2025-01-23 18:33 | ED ---
Chest Pain HPI - General Stated Complaint: Chest pain Time Seen by Provider: 01/23/25 18:19 - History of Present Illness Initial Comments: This patient is a 79-year-old man who presents for evaluation of chest pain. The patient states that he was visiting with family and was eating when the initial episode occurred. He indicates substernal and left chest pain. There was radiation to the left shoulder and jaw. The patient states that the pain did resolve. He went home and he states that he had a second episode of pain for which EMS brought him in. The patient has taken aspirin. MD Complaint: chest pain Onset/Timin -: hour(s) Onset: after eating (While using) Pain Location: substernal, left chest Pain Radiation: LUE, neck, jaw/teeth Severity: moderate Quality: tightness, aching Consistency: now resolved Improves With: other (Spontaneously) Worsens With: exertion Treatments Prior to Arrival: aspirin - Related Data Home Medications Medication Instructions Recorded Confirmed Omeprazole [PriLOSEC] 20 mg PO DAILY 10/21/14 01/24/25 Donepezil HCl [Aricept] 10 mg PO DAILY 01/05/20 01/24/25 Lisinopril-Hctz 20-12.5 mg 1 tab PO DAILY 11/27/22 01/24/25 [Zestoretic 20-12.5] Rosuvastatin Calcium [Crestor] 40 mg PO HS 11/27/22 01/24/25 Calcium Carbonate/Vitamin D3 1 tab PO DAILY 01/24/25 01/24/25 [Calcium 600 mg-D3 20 mcg (800 unit)] Cholecalciferol [Vitamin D3 (125 125 mcg PO DAILY 01/24/25 01/24/25 Mcg = 5000 Iu)] Flaxseed Oil 1200mg 1,200 mg PO DAILY 01/24/25 01/24/25 Magnesium 250 mg PO DAILY 01/24/25 01/24/25 Memantine [Namenda] 5 mg PO DAILY 01/24/25 01/24/25 Multivitamin(Iron Free) 1 tab PO DAILY 01/24/25 01/24/25 Allergies Allergy/AdvReac Type Severity Reaction Status Date / Time shingles booster vaccine Allergy Unknown Rash/Hives Uncoded 01/24/25 11:04 Review of Systems ROS Statement: Those systems with pertinent positive or pertinent negative responses have been documented in the HPI. ROS Other: All systems not noted in ROS Statement are negative. Constitutional: Denies: fever, chills, weakness Respiratory: Denies: cough, dyspnea Cardiovascular: Reports: chest pain. Denies: palpitations, dyspnea on exertion, edema, syncope Gastrointestinal: Denies: abdominal pain, nausea, vomiting, diarrhea Genitourinary: Denies: dysuria, hematuria Musculoskeletal: Denies: back pain Skin: Denies: rash Neurological: Denies: headache, weakness EKG Findings - EKG Results: EKG: interpreted by ERMD, sinus rhythm, normal ST/T - Blocks, [place] Path, Hypertrophy, ST Abn: AV and intraventricular conduction: right bundle branch block (fixed/intermittent, complete/incomplete) (Incomplete) QRS axis and voltage: left axis deviation (-30 to -90) Past Medical History Past Medical History: Asthma, GERD/Reflux, Hyperlipidemia, Hypertension, Thyroid Disorder Additional Past Medical History / Comment(s): HAD BLOOD CLOT IN "MINOR VEIN" History of Any Multi-Drug Resistant Organisms: None Reported Past Surgical History: Appendectomy, Cholecystectomy, Hernia Repair Additional Past Surgical History / Comment(s): PARATHYROID REMOVED, COLONOSCOPY 2011-08 POLYP Past Anesthesia/Blood Transfusion Reactions: No Reported Reaction Additional Past Anesthesia/Blood Transfusion Reaction / Comment(s): no blood transusion Smoking Status: Former smoker - Past Family History Sister(s) Family Medical History: Cancer Additional Family Medical History / Comment(s): unsure General Exam General appearance: alert, in no apparent distress Head exam: Present: atraumatic, normocephalic Eye exam: Present: normal appearance. Absent: scleral icterus, conjunctival injection ENT exam: Present: normal oropharynx Neck exam: Present: normal inspection, full ROM Respiratory exam: Present: normal lung sounds bilaterally. Absent: respiratory distress, wheezes, rales, rhonchi, stridor, accessory muscle use Cardiovascular Exam: Present: regular rate, normal rhythm, normal heart sounds. Absent: systolic murmur, diastolic murmur, rubs, gallop GI/Abdominal exam: Present: soft. Absent: distended, tenderness, guarding, rebound, rigid, mass, pulsatile mass Extremities exam: Present: normal inspection, normal capillary refill. Absent: pedal edema, calf tenderness Back exam: Present: normal inspection. Absent: CVA tenderness (R), CVA tenderness (L) Neurological exam: Present: alert Skin exam: Present: warm, dry, intact, normal color. Absent: rash Course Vital Signs 01/23/25 01/23/25 01/23/25 18:28 21:20 23:20 Temperature 98.9 F Pulse Rate 60 64 64 Respiratory 18 18 18 Rate Blood Pressure 158/80 152/84 140/93 O2 Sat by Pulse 98 98 99 Oximetry 01/24/25 01/24/25 01/24/25 01:52 02:00 04:00 Temperature Pulse Rate 76 57 L 53 L Respiratory 18 18 18 Rate Blood Pressure 145/79 125/75 130/72 O2 Sat by Pulse 99 99 99 Oximetry 01/24/25 01/24/25 01/24/25 07:48 08:40 10:05 Temperature Pulse Rate 61 59 L 59 L Respiratory 14 16 16 Rate Blood Pressure 152/74 134/70 144/80 O2 Sat by Pulse 98 98 98 Oximetry 01/24/25 01/24/25 12:05 13:20 Temperature Pulse Rate 56 L 58 L Respiratory 16 17 Rate Blood Pressure 126/71 125/62 O2 Sat by Pulse 96 97 Oximetry Chest Pain [facility] The patient had chest x-ray that I interpreted as negative for acute infiltrate, pneumothorax, congestive heart failure Was pt. sent in by a medical professional or institution (LON [place], TERMINAL COMPUTER OPERATOR, urgent care, hospital, or fpc...) When possible be specific @ -[No] Did you speak to anyone other than the patient for history (EMS, parent, family, police, friend...)? What history was obtained from this source @ -[No] Did you review nursing and triage notes (agree or disagree)? Why? @ -[I reviewed and agree with nursing and triage notes] Were old charts reviewed (outside hosp., previous admission, EMS record, old EKG, old radiological studies, urgent care reports/EKG's, fpc records)? Report findings @ -[No old charts were reviewed] Differential Diagnosis (chest pain, altered mental status, abdominal pain women, abdominal pain men, vaginal bleeding, weakness, fever, dyspnea, syncope, headache, dizziness, GI bleed, back pain, seizure, CVA, palpatations, mental health, musculoskeletal)? @ -[Differential Chest Pain: Stable Angina, Unstable Angina, STEMI, NSTEMI Aortic Dissection, Pneumothorax, Musculoskeletal, Esophageal Spasm GERD, Cholecystitis, Pancreatitis, Zoster, this is not meant to be an all-inclusive list. EKG interpreted by me (3pts min.). @ -[I interpreted as above] X-rays interpreted by me (1pt min.). @ -[I interpreted as above CT interpreted by me (1pt min.). @ -[None done] U/S interpreted by me (1pt. min.). @ -[None done] What testing was considered but not performed or refused? (CT, X-rays, U/S, labs )? Why? @ -[None] What meds were considered but not given or refused? Why? @ -[None] Did you discuss the management of the patient with other professionals (professionals i.e. , PA, TERMINAL COMPUTER OPERATOR, lab, RT, psych nurse, delinquency prevention social worker, rivet heater gas, teacher, code enforcement officer, medical case manager)? Give summary @ -[No] Was smoking cessation discussed for >3mins.? @ -[No] Was critical care preformed (if so, how long)? @ -[No] Were there social determinants of health that impacted care today? How? (Homelessness, low income, unemployed, alcoholism, drug addiction, transportation, low edu. Level, literacy, decrease access to med. care, half-way, rehab)? @ -[No] Was there de-escalation of care discussed even if they declined (Discuss DNR or withdrawal of care, Hospice)? DNR status @ -[No] What co-morbidities impacted this encounter? (DM, HTN, Smoking, COPD, CAD, Cancer, CVA, ARF, Chemo, Hep., AIDS, mental health diagnosis, sleep apnea, morbid obesity)? @ -[Hypertension Was patient admitted / discharged? Hospital course, mention meds given and route, prescriptions, significant lab abnormalities, going to OR and other pertinent info. @ -[Patient is 79-year-old man presenting with complaint of chest pain. The patient does have concerning factors and will be admitted for serial cardiac enzymes, telemetry monitoring, cardiology consultation Undiagnosed new problem with uncertain prognosis? @ -[No] Drug Therapy requiring intensive monitoring for toxicity (Heparin, Nitro, Insulin, Cardizem)? @ -[No] Were any procedures done? @ -[No] Diagnosis/symptom? @ -[Acute chest pain Acute, or Chronic, or Acute on Chronic? @ -[Acute Uncomplicated (without systemic symptoms) or Complicated (systemic symptoms)? @ -[Uncomplicated Side effects of treatment? @ -[No] Exacerbation, Progression, or Severe Exacerbation? @ -[No] Poses a threat to life or bodily function? How? (Chest pain, [place], [place], pneumonia, PE, COPD, DKA, ARF, appy, cholecystitis, CVA, Diverticulitis, Homicidal, Suicidal, threat to staff... and all critical care pts) @ -[No] All treatments are based on ideal body weight as in ED triage Disposition Clinical Impression: Chest pain Disposition: ADMITTED IP TO THIS HOSP Condition: Stable Is patient prescribed a controlled substance at d/c from ED?: No
--- NOTE | 2025-01-23 20:44 | XR ---
EXAMINATION TYPE: XR chest 2V DATE OF EXAM: 01/23/2025 8:28 PM COMPARISON: Chest radiograph 07/18/2022. CLINICAL INDICATION: Male, 79 years old with history of Chest Pain; [facility] TECHNIQUE: XR chest 2V Frontal and lateral views of the chest. FINDINGS: Lungs/Pleura: There is no evidence of pleural effusion, focal consolidation, or pneumothorax. Pulmonary vascularity: Unremarkable. Heart/mediastinum: Cardiomediastinal silhouette is unremarkable. Musculoskeletal: No acute osseous pathology. Other findings: None IMPRESSION: No acute cardiopulmonary disease/process. [facility], , 01/23/2025 8:42 PM
[2025-01-23 20:56] LABS: Basophils # (A) 0.08 10*3/uL (0.00-0.10); Eosinophils # (A) 0.19 10*3/uL (0.04-0.35); Eosinophils % (A) 2.5 %; HCT 43.5 % (39.6-50.0); HGB 14.8 g/dL (13.0-17.0); Lymphocytes # (A) 2.24 10*3/uL (0.90-5.00); Lymphocytes % (A) 29.3 %; MCH 30.5 pg (27.0-32.0); MCV 89.5 fL (80.0-97.0); Monocytes # (A) 0.64 10*3/uL (0.20-1.00); Monocytes % (A) 8.4 %; Neutrophils # (A) 4.47 10*3/uL (1.80-7.70); Neutrophils % (A) 58.4 %; Platelet Count 263 10*3/uL (140-440); RBC 4.86 10*6/uL (4.40-5.60); RDW 12.6 % (11.5-14.5); WBC 7.65 10*3/uL (4.50-10.00)
[2025-01-23 21:23] LABS: ALT 24 U/L (4-49); AST 27 U/L (17-59); African American GFR (CKD) 74 (>60 ml/min/1.73 sqM); Albumin 4.1 g/dL (3.5-5.0); Alkaline Phosphatase 59 U/L (38-126); Amylase 60 U/L (30-110); Anion Gap 11 mmol/L; Blood Urea Nitrogen 19 mg/dL (9-20); Calcium 9.4 mg/dL (8.4-10.2); Carbon Dioxide 26 mmol/L (22-30); Chloride 104 mmol/L (98-107); Glucose 83 mg/dL (74-99); Lipase 190 U/L (23-300); Non-African American GFR(CKD) 64 (>60 ml/min/1.73 sqM); Sodium 141 mmol/L (137-145); Total Bilirubin 1.3 mg/dL (0.2-1.3); Total Protein 7.3 g/dL (6.3-8.2)
[2025-01-23 21:31] LABS: Partial Thromboplastin Time 22.2 sec (22.0-30.0); Prothrombin Time 10.9 sec (10.0-12.5)
[2025-01-23] MEDS ORDERED: NITROGLYCERIN SL TABS 0.4 MG TAB SUBLINGUAL PRN (22:09)
--- NOTE | 2025-01-23 23:18 | P.HPIM ---
History of Present Illness H&P Date: 01/23/25 Chief Complaint: Chest pain Patient is a 79 year old male with asthma, GERD, hyperlipidemia, hypertension, hypothyroidism presented to the ED with chest pain. Patient states that he was visiting his family and was eating when he started having chest pain. The pain is substernal and left-sided. The pain was radiating to both the shoulder and the jaw. His pain then resolved initially but then when he went home he had another episode of similar pain, he took aspirin and called EMS. He mentions that 4-5 days ago his neighbours dog was running behind him and he ran and went to his home and closed the door. He wasn't injured but he did have chest pain at the time. His chest pain is worse with exertion. He has not experienced similar pain in the past. He has not had a stress test in the past. No personal or family history of CAD. Denies smoking, using alcohol or drugs. He also report having chronic lower extremity edema, but denies history of CHF. Moreover, he had surgery for his thyroid and is not taking medications for that anymore. Denies fever, chills, cough, palpitations, abdominal pain, nausea, vomiting, hematuria, dysuria, hematochezia, melena, headache, slurred speech, numbness, tingling, dizziness, lightheadedness, blurred vision, double vision. ED documentation reviewed. Vitals on admission T 98.9 F, LA 60 bpm, RR 18, BP 158/80, SpO2 98% on room air EKG independently interpreted as sinus rhythm, rate 61 bpm, QTc 431 ms Chest x-ray shows no acute cardiopulmonary disease/process Labs on admission show WBC 7.65, hemoglobin 14.8, platelet 263, INR 1.0, sodium 141, potassium 4.0, creatinine 1.09, magnesium 2.0, troponin I <0.012 Review of systems: Pertinent positives and negatives as discussed in HPI, a complete review of systems was performed and all other systems are negative. Physical examination: Vital signs reviewed General: nontoxic, no distress, appears at stated age Derm: warm, dry, intact Head: atraumatic, normocephalic, symmetric Eyes: EOMI, anicteric sclera Mouth: no lip lesion, mucus membranes moist Cardiovascular: S1 S2 reg, no murmur Lungs: CTA bilateral, no rhonchi, no rales, no accessory muscle use Abdominal: soft, non-tender to palpation Extremities: 2+ pitting edema on b/l LE, No cyanosis, clubbing, or pedal edema. Neuro: Alert, Oriented, Gross neurological examination did not reveal any focal deficits. Psych: well appearing, appropriate affect Assessment/Plan: Patient is a 79 year old male with asthma, GERD, hyperlipidemia, hypertension, hypothyroidism presented to the ED with chest pain. Patient admitted to internal medicine service. Active: #. Stable angina troponin I <0.012 EKG independently interpreted as sinus rhythm, rate 61 bpm, QTc 431 ms Echocardiogram obtained in January 2024 showed EF 55 to 60%, normal LV systolic function, aortic sclerosis with mild aortic stenosis Aspirin 80 mg p.o. daily, atorvastatin 80 mg p.o. at bedtime Continue nitroglycerin 0.4 mg sublingual Q5M as needed Obtain lipid panel, A1c, TSH Obtain echocardiogram Continue to trend troponin Continue telemetry monitoring Cardiology consulted Chronic: #. Asthma #. Hyperlipidemia #. Hypertension #. GERD #. Cognitive decline #. Vitamin D deficiency #. Hypothyroidism #. Chronic lower extremity edema Resume home meds once verified by pharmacy F: None E: Replete as required N: Heart healthy diet A: Bedrest DVT prophylaxis: Lovenox 40 mg SQ daily GI prophylaxis: Pantoprazole 40 mg PO daily The patient is admitted with an anticipated less than 2 midnight stay for evaluation of chest pain CODE STATUS: FULL CODE Discussed with: Patient Anticipated discharge place: Pending clinical course Dictation was produced using [employer] dictation software. please excuse any grammatical, word or spelling errors. Tashi Romero MD PGY-1 IM I have seen and evaluated the patient today. I Discussed the case with the resident and agree with the resident's findings I edited the assessment and plan as necessary as documented in the resident's note. Past Medical History Past Medical History: Asthma, GERD/Reflux, Hyperlipidemia, Hypertension, Thyroid Disorder Additional Past Medical History / Comment(s): HAD BLOOD CLOT IN "MINOR VEIN" History of Any Multi-Drug Resistant Organisms: None Reported Past Surgical History: Appendectomy, Cholecystectomy, Hernia Repair Additional Past Surgical History / Comment(s): PARATHYROID REMOVED, COLONOSCOPY 2011- POLYP Past Anesthesia/Blood Transfusion Reactions: No Reported Reaction Additional Past Anesthesia/Blood Transfusion Reaction / Comment(s): no blood transusion Smoking Status: Former smoker - Past Family History Sister(s) Family Medical History: Cancer Additional Family Medical History / Comment(s): unsure Medications and Allergies Home Medications Medication Instructions Recorded Confirmed Type Omeprazole [PriLOSEC] 20 mg PO DAILY 10/21/14 08/03/24 History Calcium Carbonate [Calcium] 600 mg PO DAILY 09/03/18 07/31/24 History Donepezil HCl [Aricept] 10 mg PO DAILY 01/05/20 08/03/24 History flaxseed oiL [Flaxseed Oil] 1,000 mg PO HS 01/05/20 07/31/24 History Albuterol Sulfate [Albuterol 1 - 2 puff INHALATION RT-Q6H PRN 11/27/22 07/31/24 History Sulfate Hfa] Cholecalciferol [Vitamin D3 (25 50 mcg PO DAILY 11/27/22 07/31/24 History Mcg = 1000 Iu)] Lisinopril-Hctz 20-12.5 mg 1 tab PO DAILY 11/27/22 08/03/24 History [Zestoretic 20-12.5] Magnesium 200 mg PO DAILY 11/27/22 07/31/24 History Mv-Min/Folic/K1/Lycopen/Lutein 1 tab PO DAILY 11/27/22 07/31/24 History [Centrum Silver Men Tablet] Rosuvastatin Calcium [Crestor] 40 mg PO HS 11/27/22 08/03/24 History Allergies Allergy/AdvReac Type Severity Reaction Status Date / Time shingles booster vaccine AdvReac Unknown Rash/Hives Uncoded 08/03/24 11:08 Physical Exam Vitals: Vital Signs Temp Pulse Resp BP Pulse Ox 01/23/25 21:20 64 18 152/84 98 01/23/25 18:28 98.9 F 60 18 158/80 98 Intake and Output 01/23/25 01/23/25 01/23/25 06:59 14:59 22:59 Other: Weight 106.594 kg Results CBC & Chem 7: 01/23/25 20:20 01/23/25 20:20 Labs: Abnormal Lab Results - Last 24 Hours (Table) 01/23/25 Range/Units 20:20 MPV 9.0 L (9.5-12.2) fL
[2025-01-23] MEDS: ATORVASTATIN 80 MG TAB PO SCH (23:19)
[2025-01-23] MEDS: ASPIRIN 81 MG PO SCH (23:19)
[2025-01-24 06:39] LABS: HCT 42.5 % (39.6-50.0); HGB 14.2 g/dL (13.0-17.0); MCH 30.8 pg (27.0-32.0); MCHC 33.4 g/dL (32.0-37.0); MCV 92.2 fL (80.0-97.0); Mean Platelet Volume 9.5 fL (9.5-12.2); Platelet Count 262 10*3/uL (140-440); RBC 4.61 10*6/uL (4.40-5.60); WBC 6.92 10*3/uL (4.50-10.00)
[2025-01-24 07:00] LABS: African American GFR (CKD) 68 (>60 ml/min/1.73 sqM); Anion Gap 11 mmol/L; Blood Urea Nitrogen 20 mg/dL (9-20); Calcium 9.5 mg/dL (8.4-10.2); Carbon Dioxide 26 mmol/L (22-30); Chloride 103 mmol/L (98-107); Glucose 93 mg/dL (74-99); Non-African American GFR(CKD) 58 (>60 ml/min/1.73 sqM); Potassium 4.3 mmol/L (3.5-5.1); Sodium 140 mmol/L (137-145)
[2025-01-24] MEDS: PANTOPRAZOLE 40 MG TABLET PO SCH (08:36)
[2025-01-24] MEDS: ENOXAPARIN 40 MG/0.4 ML SYRINGE SQ SCH (08:36)
[2025-01-24] MEDS ORDERED: ASPIRIN 325 MG TAB PO SCH (09:00)
[2025-01-24] MEDS ORDERED: ALBUTEROL NEBULIZED 2.5 MG/3 ML INHALATION PRN (09:18)
[2025-01-24] MEDS: DONEPEZIL 10 MG TAB PO SCH (10:00)
[2025-01-24] MEDS: LISINOPRIL-HCTZ 20-12.5 MG 1 EACH TAB PO SCH (10:00)
--- NOTE | 2025-01-24 11:48 | P.CRDCN ---
History of Present Illness Consult date: 01/24/25 History of present illness: HISTORY OF PRESENTING ILLNESS: 79-year-old with prior history of hypertension and obesity. He presented to the hospital because of substernal chest pressure that started when he was eating food at a restaurant. He reports that he has been feeling well otherwise. He denies any prior cardiovascular history. He denies any history of stroke or TIA in the past. He has not been feeling lightheaded or dizzy otherwise. Denies any smoking or use of drugs marijuana use or alcohol use lately. Admission Labs: Troponins are negative, BUN/creatinine Hb WNL, TSH 2.0 Admission EKG: EKG shows sinus rhythm, normal axis heart rate 61 bpm. Repeat EKG shows mild ST depression with T wave inversions in inferolateral leads. REVIEW OF SYSTEMS: 14 point review of system is negative except what is mentioned above in HPI. PHYSICAL EXAMINATION: Neck: Brisk carotid upstroke, no jugular venous distention. Lungs: Clear to auscultation. Heart: Regular rate and rhythm, S1-S2, , no murmur or rub. Abdomen: Soft nontender, positive bowel sounds. Extremities: No edema, intact distal pulses. Neuro: Alert, oritented, no focal deficits. Detailed neuro exam was not performed. ASSESSMENT: # Atypical chest pain # Essential hypertension # Mild abnormal EKG with nonspecific T wave inversions in inferolateral leads # Obesity PLAN: Obtain echo and a treadmill echo stress test tomorrow a.m. if patient cannot walk on treadmill, to converted to dobutamine echo Aspirin 81 mg, Lipitor Continue lisinopril HCTZ 20/12.5 daily repeat trop Lipid NT-proBNP A1c Thank you for allowing [facility] to participate in this patient's care. Feel free to reach out in case of any followup questions. Past Medical History Past Medical History: Asthma, GERD/Reflux, Hyperlipidemia, Hypertension, Thyroid Disorder Additional Past Medical History / Comment(s): HAD BLOOD CLOT IN "MINOR VEIN" History of Any Multi-Drug Resistant Organisms: None Reported Past Surgical History: Appendectomy, Cholecystectomy, Hernia Repair Additional Past Surgical History / Comment(s): PARATHYROID REMOVED, COLONOSCOPY 2011- POLYP Past Anesthesia/Blood Transfusion Reactions: No Reported Reaction Additional Past Anesthesia/Blood Transfusion Reaction / Comment(s): no blood transusion Smoking Status: Former smoker - Past Family History Sister(s) Family Medical History: Cancer Additional Family Medical History / Comment(s): unsure Medications and Allergies Home Medications Medication Instructions Recorded Confirmed Type Omeprazole [PriLOSEC] 20 mg PO DAILY 10/21/14 01/24/25 History Donepezil HCl [Aricept] 10 mg PO DAILY 01/05/20 01/24/25 History Lisinopril-Hctz 20-12.5 mg 1 tab PO DAILY 11/27/22 01/24/25 History [Zestoretic 20-12.5] Rosuvastatin Calcium [Crestor] 40 mg PO HS 11/27/22 01/24/25 History Calcium Carbonate/Vitamin D3 1 tab PO DAILY 01/24/25 01/24/25 History [Calcium 600 mg-D3 20 mcg (800 unit)] Cholecalciferol [Vitamin D3 (125 125 mcg PO DAILY 01/24/25 01/24/25 History Mcg = 5000 Iu)] Flaxseed Oil 1200mg 1,200 mg PO DAILY 01/24/25 01/24/25 History Magnesium 250 mg PO DAILY 01/24/25 01/24/25 History Memantine [Namenda] 5 mg PO DAILY 01/24/25 01/24/25 History Multivitamin(Iron Free) 1 tab PO DAILY 01/24/25 01/24/25 History Allergies Allergy/AdvReac Type Severity Reaction Status Date / Time shingles booster vaccine Allergy Unknown Rash/Hives Uncoded 01/24/25 11:04 Physical Exam Vitals: Vital Signs Temp Pulse Resp BP Pulse Ox 01/24/25 10:05 59 L 16 144/80 98 01/24/25 08:40 59 L 16 134/70 98 01/24/25 07:48 61 14 152/74 98 01/24/25 04:00 53 L 18 130/72 99 01/24/25 02:00 57 L 18 125/75 99 01/24/25 01:52 76 18 145/79 99 01/23/25 23:20 64 18 140/93 99 01/23/25 21:20 64 18 152/84 98 01/23/25 18:28 98.9 F 60 18 158/80 98 Intake and Output 01/23/25 01/24/25 01/24/25 22:59 06:59 14:59 Other: Weight 106.594 kg Results 01/24/25 02:00 01/24/25 02:00 Cardiac Enzymes 01/23/25 01/23/25 01/23/25 Range/Units 20:20 20:20 22:38 AST 27 (17-59) U/L Troponin I <0.012 <0.012 (0.000-0.034) ng/mL 01/24/25 Range/Units 00:31 AST (17-59) U/L Troponin I <0.012 (0.000-0.034) ng/mL Coagulation 01/23/25 Range/Units 20:20 PT 10.9 (10.0-12.5) sec APTT 22.2 (22.0-30.0) sec CBC 01/23/25 01/24/25 Range/Units 20:20 02:00 WBC 7.65 6.92 (4.50-10.00) 10*3/uL RBC 4.86 4.61 (4.40-5.60) 10*6/uL Hgb 14.8 14.2 (13.0-17.0) g/dL Hct 43.5 42.5 (39.6-50.0) % Plt Count 263 262 (140-440) 10*3/uL Comprehensive Metabolic Panel 01/23/25 01/24/25 Range/Units 20:20 02:00 Sodium 141 140 (137-145) mmol/L Potassium 4.0 4.3 (3.5-5.1) mmol/L Chloride 104 103 (98-107) mmol/L Carbon Dioxide 26 26 (22-30) mmol/L BUN 19 20 (9-20) mg/dL Creatinine 1.09 1.18 (0.66-1.25) mg/dL Glucose 83 93 (74-99) mg/dL Calcium 9.4 9.5 (8.4-10.2) mg/dL AST 27 (17-59) U/L ALT 24 (4-49) U/L Alkaline Phosphatase 59 (38-126) U/L Total Protein 7.3 (6.3-8.2) g/dL Albumin 4.1 (3.5-5.0) g/dL Current Medications Generic Name Dose Route Start Last Admin Trade Name Freq PRN Reason Stop Dose Admin Albuterol Sulfate 2.5 mg 01/24/25 09:18 Albuterol Nebulized 2.5 Mg/3 Ml INHALATION RT-Q6H PRN Shortness Of Breath Aspirin 81 mg 01/23/25 23:00 01/24/25 08:36 Aspirin 81 Mg PO 81 mg DAILY CESAR Administration Atorvastatin Calcium 80 mg 01/23/25 23:00 01/23/25 23:19 Atorvastatin 80 Mg Tab PO 80 mg HS CESAR Administration Donepezil HCl 10 mg 01/24/25 09:30 01/24/25 10:00 Donepezil 10 Mg Tab PO 10 mg DAILY CESAR Administration Enoxaparin Sodium 40 mg 01/24/25 09:00 01/24/25 08:36 Enoxaparin 40 Mg/0.4 Ml Syringe SQ 40 mg DAILY CESAR Administration Lisinopril/HCTZ 1 each 01/24/25 09:30 01/24/25 10:00 Lisinopril-Hctz 20-12.5 Mg 1 Each Tab PO 1 each DAILY CESAR Administration Nitroglycerin 0.4 mg 01/23/25 22:09 Nitroglycerin Sl Tabs 0.4 Mg Tab SUBLINGUAL Q5M PRN Chest Pain Pantoprazole Sodium 40 mg 01/24/25 07:30 01/24/25 08:36 Pantoprazole 40 Mg Tablet PO 40 mg [id number] [facility] Administration Intake and Output 01/23/25 01/24/25 01/24/25 22:59 06:59 14:59 Other: Weight 106.594 kg 01/24/25 02:00 01/24/25 02:00
[2025-01-24 14:10] LABS: Chol/HDL Ratio 3.66 Ratio; LDL Cholesterol,Calculated 68.7 mg/dL (0.0-131.0)
--- NOTE | 2025-01-24 14:26 | P.PN ---
Subjective Progress Note Date: 01/24/25 Hospital course: Patient is a very pleasant 79-year-old male with a past medical history of hypertension, hyperlipidemia, parathyroidectomy, GERD, dementia with mild cognitive decline, and asthma/COPD. He presented to the hospital on 01/23/2025 with a chief complaint of chest pain. Upon arrival to our facility, patient underwent evaluation in the emergency department. Vital signs upon arrival show blood pressure 158/80, heart rate 60, respiratory rate 18, temp 98.9 F, and SpO2 of 98% on room air. EKG completed showing sinus mechanism at 61 bpm with no significant T wave or ST abnormality showing no signs of acute ischemia upon personal review and interpretation. Chest x-ray completed and was negative for acute cardiopulmonary process. Labs completed and reviewed. CBC unremarkable. Coagulation profile normal findings. BMP unremarkable. Blood glucose 83. Magnesium 2.0. Calcium 9.4. Liver profile unremarkable. Patient mated under services with consultation to cardiology. Troponins trended overnight all negative at less than 0.012 x 3 draws. Lipid profile unremarkable with exc eption of low HDL of 34.70. Hemoglobin A1c 6.1%. TSH 2.00. Repeat EKG completed this morning showing sinus bradycardia at 55 bpm with new onset inferiolateral T wave inversion in leads II, III, aVF, V5 and V6. Physical exam: Patient was seen and fully evaluated at bedside this morning he was ambulating back from restroom and then up to chair. He was visiting with at bedside. Patient currently reports chest pain has resolved and denies having any headache, lightheadedness, dizziness, palpitations, shortness of breath, or experiencing any numbness/tingling/weakness/swelling in his extremities. Vital signs reviewed and stable. General: Nontoxic, no distress and appears stated age. Derm: Skin warm and dry, normal coloration for ethnicity. Head: Atraumatic, normocephalic and symmetric. Eyes: EOM's intact, no lid lag, and anicteric sclera Mouth: no lip lesions, mucus membranes moist Cardiovascular: regular rate and rhythm with normal S1S2, systolic murmur, positive posterior tibial pulses bilaterally, and cap refill < 2 seconds. Lungs: Respirations even, regular, and unlabored on room air. Lungs CTA bilaterally, no rhonchi, no rales, no wheezing, and no accessory muscle usage. Abdominal: soft, nontender to palpation, no guarding, no appreciable organomegaly Ext: ROM intact. No gross muscle atrophy, no edema, no contractures Neuro: Speech clear, face symmetrical and CN II-XII grossly intact with no noted focal neuro deficits Psych: Alert and oriented to person, place, time, and situation. Appropriate and pleasant affect. Assessment and Plan of Care: Atypical Chest Pain, rule out acute coronary event New onset EKG changes Hypertension Hyperlipidemia -Cardiology consulted, appreciate recommendations -Telemetry monitoring -Troponins trended overnight all negative at less than 0.012 x 3 draws. Lipid profile unremarkable with exception of low HDL of 34.70. Hemoglobin A1c 6.1%. TSH 2.00. -Initial EKG completed showing sinus mechanism at 61 bpm with no significant T wave or ST abnormality showing no signs of acute ischemia. Repeat EKG completed this morning showing sinus bradycardia at 55 bpm with new onset inferiolateral T wave inversion in leads II, III, aVF, V5 and V6. -Continue cardiac medication regimen with aspirin 81 mg daily, atorvastatin 80 mg nightly, and lisinopril/hydrochlorothiazide 20/12.5 mg daily. -Echocardiogram to be completed Dementia with mild cognitive decline Continue Aricept 10 mg daily and Namenda 5 mg daily. Asthma/COPD, not in acute exacerbation. Continue Ventolin nebulizer treatments every 6 hours as needed for shortness of breath and/or wheezing. Data and imaging reviewed: Troponins trended overnight all negative at less than 0.012 x 3 draws. Lipid profile unremarkable with exception of low HDL of 34.70. Hemoglobin A1c 6.1%. TSH 2.00. Repeat EKG completed this morning showing sinus bradycardia at 55 bpm with new onset inferiolateral T wave inversion in leads II, III, aVF, V5 and V6 on personal review and interpretation. CODE STATUS: Full code DVT prophylaxis: Lovenox Anticipated discharge date: Pending clinical course Anticipated discharge place: Home Patient was seen independently by Nurse Pracitioner. This document was prepared using [employer] dictation software. Please allow for errors in guard range, while rare they do occur. Aaron Herron NP rendered care for this patient independently, reviewed the findings and plan as documented in the note above and agree with plan. I did not physically speak with or examine the patient on this date. Objective - Vital Signs Vital signs: Vital Signs Temp 98.9 F 01/23/25 18:28 Pulse 59 L 01/24/25 08:40 Resp 16 01/24/25 08:40 BP 134/70 01/24/25 08:40 Pulse Ox 98 01/24/25 08:40 FiO2 Intake & Output 01/23/25 01/24/25 01/24/25 18:59 06:59 18:59 Weight 106.594 kg - Labs CBC & Chem 7: 01/24/25 02:00 01/24/25 02:00 Labs: Abnormal Lab Results - Last 24 Hours (Table) 01/23/25 Range/Units 20:20 MPV 9.0 L (9.5-12.2) fL
[2025-01-24] MEDS: MEMANTINE 5 MG TAB PO SCH (14:47)
[2025-01-25 05:48] VITALS: RESP 18
[2025-01-25] MEDS ORDERED: NON FORMULARY DRUG (Omeprazole [Prilosec] 20 MG Capsule.Dr) PO SCH (09:00)
[2025-01-25 10:16] LABS: HCT 43.5 % (39.6-50.0); HGB 14.2 g/dL (13.0-17.0); MCH 29.6 pg (27.0-32.0); MCHC 32.6 g/dL (32.0-37.0); MCV 90.8 FL (80.0-97.0); Mean Platelet Volume 9.5 FL (9.5-12.2); NRBC Per 100 WBC 0 X 10*3/uL (0.00-0.01); Platelet Count 255 X 10*3/uL (140-440); RBC 4.79 X 10*6/uL (4.40-5.60); RDW 12.9 % (11.5-14.5); WBC 7.02 X 10*3/uL (4.50-10.00)
[2025-01-25 10:30] LABS: BUN/Creat Ratio 18.75 Ratio (12.00-20.00); Blood Urea Nitrogen 22.5 mg/dL (9.0-27.0); Calcium 9.3 mg/dL (8.7-10.3); Chloride 101 mmol/L (96-109); Glucose 105 mg/dL (70-110); Magnesium 2.1 mg/dL (1.5-2.4); Potassium 4.2 mmol/L (3.5-5.5); Sodium 137 mmol/L (135-145)
--- NOTE | 2025-01-25 12:03 | P.PN ---
Subjective HISTORY OF PRESENTING ILLNESS: 79-year-old with prior history of hypertension and obesity. He presented to the hospital because of substernal chest pressure that started when he was eating food at a restaurant. He reports that he has been feeling well otherwise. He denies any prior cardiovascular history. He denies any history of stroke or TIA in the past. He has not been feeling lightheaded or dizzy otherwise. Denies any smoking or use of drugs marijuana use or alcohol use lately. Admission Labs: Troponins are negative, BUN/creatinine Hb WNL, TSH 2.0 Admission EKG: EKG shows sinus rhythm, normal axis heart rate 61 bpm. Repeat EKG shows mild ST depression with T wave inversions in inferolateral leads. 01/25/2025 Patient seen and examined sitting up in the chair in no acute distress. He underwent a stress echocardiogram today which was normal. He is updated and reassured. Blood pressure 115/74 heart rate 56 afebrile maintaining oxygen saturation on room air. Laboratory data reviewed, CBC unremarkable, sodium 137, potassium 4.2, creatinine 1.2, LDL 68. PHYSICAL EXAMINATION: Neck: Brisk carotid upstroke, no jugular venous distention. Lungs: Clear to auscultation. Heart: Regular rate and rhythm, S1-S2, , no murmur or rub. Abdomen: Soft nontender, positive bowel sounds. Extremities: No edema, intact distal pulses. Neuro: Alert, oritented, no focal deficits. Detailed neuro exam was not performed. ASSESSMENT: # Atypical chest pain # Essential hypertension # Mild abnormal EKG with nonspecific T wave inversions in inferolateral leads # Obesity PLAN: Stress echocardiogram was unremarkable, reviewed by Dr. Samaniego. Stable for discharge from a cardiac perspective. Follow-up in the office in [address] Brock. Nurse Practitioner note has been reviewed, I agree with a documented findings and plan of care. Patient was seen and examined. Objective - Vital Signs Vital signs: Vital Signs Temp 97.9 F 01/25/25 05:46 Pulse 56 L 01/25/25 08:00 Resp 18 01/25/25 08:00 BP 115/74 01/25/25 05:46 Pulse Ox 97 01/25/25 08:16 FiO2 Intake & Output 01/24/25 01/25/25 01/25/25 18:59 06:59 18:59 Weight 106.594 kg Other: # Voids 2 - Labs CBC & Chem 7: 01/25/25 05:49 01/25/25 05:49 Labs: Abnormal Lab Results - Last 24 Hours (Table) 01/24/25 01/24/25 Range/Units 02:00 02:00 Hemoglobin A1c 6.1 H (<=6.0) % HDL Cholesterol 34.70 L (40.00-60.00) mg/dL
--- NOTE | 2025-01-25 12:59 | CA ---
Stress Echo Report Rahul Diaz Age: 79 Gender: M : 1945 Exam Date: 01/25/2025 09:22 Exam Location: [facility] Ht (in): 73 Wt (lb): 235 Ordering Physician: Manolo Martin MD ([id number]) Referring Physician: TAY,, Patternmaker Plaster: FAIZA Technologist Procedure CPT: Indication: angina pectoris ICD-9 Codes: Rhythm: Patient History: Chest pain, shortness of breath, palpitations and hypertension Cardiac Medications: SEE CHART,,,,, Medications in past 24 hours: Contrast: Definity Stress Results Protocol: García Total dose(mL): 2 Exercise Duration (min:sec): 5:[address] Depression (mm): Angina Score: Fajardo Score: METS: 6.8 Resting HR: 63 Resting BP: 128 / 63 Peak HR: 123 Peak BP: 170 / 56 Max Predicted HR: 141 87 % Max Predicted HR Target HR: 120 Double Product: [id number] Stress Summary: BP Response: Reason for Termination: MAX EXERTION/TARGET HR Cardiac Symptoms: CHEST TIGHTNESS ECG Analysis Resting ECG: Stress ECG: Arrhythmia: Echo Analysis Resting Echo: Peak Echo Analysis: MEASUREMENTS (Male/Female) Normal Values CONCLUSIONS Baseline EKG revealed normal sinus rhythm without 5 minutes 16 seconds on a standard García protocol normal heart rate of 123 bpm which is 87% of predicted maximal. He had vague nondescript not suggestive of angina. There was no significant arrhythmia. There were no ST segment changes to indicate ischemia. By EKG criteria this is a negative stress test with limited exercise capacity. Baseline echo images revealed normal wall motion and wall thickening of all segments. At peak exercise there was excellent augmentation of left ventricle wall motion and wall thickening of all segments suggesting that there is no evidence of any stress-induced ischemia on the study. Echo contrast was used to enhance image quality Final impression: Limited exercise capacity with a negative stress test by EKG criteria. Patient achieved more than 85% of predicted maximal heart rate. Normal stress echocardiogram without evidence of ischemia Dr. Bibiana Samaniego MD (Electronically Signed) Final Date: 25 January 2025 12:58
--- NOTE | 2025-01-25 14:29 | P.DS ---
Providers Date of admission: 01/23/25 22:13 Expected date of discharge: 01/25/25 Attending physician: Armin Perdomo MD Consults: 01/23/25 22:09 Consult Physician Routine Consulting Provider: Manolo Martin Consult Reason/Comments: chest pain Do you want consulting provider notified?: Yes [facility] care physician[facility] Hospital Course: Discharge Diagnosis: Atypical Chest Pain, acute coronary event ruled out New onset EKG changes Hypertension Hyperlipidemia Dementia with mild cognitive decline Asthma/COPD, not in acute exacerbation. Hospital Course: Patient is a very pleasant 79-year-old male with a past medical history of hypertension, hyperlipidemia, parathyroidectomy, GERD, dementia with mild cogni tive decline, and asthma/COPD. He presented to the hospital on 01/23/2025 with a chief complaint of chest pain. Upon arrival to our facility, patient underwent evaluation in the emergency department. Vital signs upon arrival show blood pressure 158/80, heart rate 60, respiratory rate 18, temp 98.9 F, and SpO2 of 98% on room air. EKG completed showing sinus mechanism at 61 bpm with no significant T wave or ST abnormality showing no signs of acute ischemia upon personal review and interpretation. Chest x-ray completed and was negative for acute cardiopulmonary process. Labs completed and reviewed. CBC unremarkable. Coagulation profile normal findings. BMP unremarkable. Blood glucose 83. Magnesium 2.0. Calcium 9.4. Liver profile unremarkable. Patient mated under services with consultation to cardiology. Troponins trended overnight all negative at less than 0.012 x 3 draws. Lipid profile unremarkable with exception of low HDL of 34.70. Hemoglobin A1c 6.1%. TSH 2.00. Repeat EKG completed this morning showing sinus bradycardia at 55 bpm with new onset inferiolateral T wave inversion in leads II, III, aVF, V5 and V6. Repeat troponin completed at this time again less than 0.012. Patient was evaluated by cardiology and taken for a stress echo. Patient remains free from any further episodes of chest pain and/or discomfort and continues to deny having any other complaints. Stress echocardiogram completed and was negative. Patient cleared from cardiac perspective outpatient follow-up in their office in 2 weeks. Remains free from any chest pain or further complaints and is medically optimized for discharge at this time. No medication changes made during this admission. Patient to follow-up outpatient with PCP in 1 to 2 days and with barrel bridge assembler in 2 weeks Physical exam: Vital signs reviewed and stable. General: Nontoxic, no distress and appears stated age. Derm: Skin warm and dry, normal coloration for ethnicity. Head: Atraumatic, normocephalic and symmetric. Eyes: EOM's intact, no lid lag, and anicteric sclera Mouth: no lip lesions, mucus membranes moist Cardiovascular: regular rate and rhythm with normal S1S2, systolic murmur, positive posterior tibial pulses bilaterally, and cap refill < 2 seconds. Lungs: Respirations even, regular, and unlabored on room air. Lungs CTA bilaterally, no rhonchi, no rales, no wheezing, and no accessory muscle usage. Abdominal: soft, nontender to palpation, no guarding, no appreciable organomegaly Ext: ROM intact. No gross muscle atrophy, no edema, no contractures Neuro: Speech clear, face symmetrical and CN II-XII grossly intact with no noted focal neuro deficits Psych: Alert and oriented to person, place, time, and situation. Appropriate and pleasant affect. A total of 32 minutes of time were spent preparing this complex discharge summary. Pt was discharged on 01/25/2025 at 2:28 PM Patient was seen independently by Nurse Practitioner. This document was prepared using [email or web address] dictation software. Please allow for errors in educational sign language interpreter while rare they do occur. Aaron Herron NP rendered care for this patient independently, reviewed the findings and plan as documented in the note above. I did not physically speak with or examine the patient on this date. Patient Condition at Discharge: Stable Plan - Discharge Summary Discharge Rx Participant: No New Discharge Prescriptions: Continue Omeprazole [PriLOSEC] 20 mg PO DAILY Donepezil HCl [Aricept] 10 mg PO DAILY Rosuvastatin Calcium [Crestor] 40 mg PO HS Calcium Carbonate/Vitamin D3 [Calcium 600 mg-D3 20 mcg (800 unit)] 1 tab PO DAILY Cholecalciferol [Vitamin D3 (125 Mcg = 5000 Iu)] 125 mcg PO DAILY Memantine [Namenda] 5 mg PO DAILY Lisinopril-Hctz 20-12.5 mg [Zestoretic 20-12.5] 1 tab PO DAILY Flaxseed Oil 1200mg 1,200 mg PO DAILY Multivitamin(Iron Free) 1 tab PO DAILY Magnesium 250 mg PO DAILY Discharge Medication List Omeprazole [PriLOSEC] 20 mg PO DAILY 03/19/15 [History] Donepezil HCl [Aricept] 10 mg PO DAILY 01/05/20 [History] Lisinopril-Hctz 20-12.5 mg [Zestoretic 20-12.5] 1 tab PO DAILY 11/27/22 [History] Rosuvastatin Calcium [Crestor] 40 mg PO HS 11/27/22 [History] Calcium Carbonate/Vitamin D3 [Calcium 600 mg-D3 20 mcg (800 unit)] 1 tab PO DAILY 01/24/25 [History] Cholecalciferol [Vitamin D3 (125 Mcg = 5000 Iu)] 125 mcg PO DAILY 01/24/25 [History] Flaxseed Oil 1200mg 1,200 mg PO DAILY 01/24/25 [History] Magnesium 250 mg PO DAILY 01/24/25 [History] Memantine [Namenda] 5 mg PO DAILY 01/24/25 [History] Multivitamin(Iron Free) 1 tab PO DAILY 01/24/25 [History] Follow up Appointment(s)/Referral(s): Manolo Martin MD [Medical Doctor] - 2 Weeks Bryan Banda DO [Primary Care Provider] - 1-2 days Patient Instructions/Handouts: Chest Pain (DC) Activity/Diet/Wound Care/Special Instructions: Activity: As tolerated. Take breaks as needed. Diet: Heart healthy and carb consistent diet. Avoid salts, or foods with hidden salts such as canned or boxed foods and frozen dinners. Extra salt makes your heart work harder and traps the fluid in your body for longer. Special Instructions: Take all of your medications as directed and remember to keep all of your doctor's appointments and follow-up as needed. Thank you for allowing us to participate in your care, it was truly a pleasure having you for our patient!!! Discharge Disposition: HOME SELF-CARE
--- NOTE | 2025-01-25 14:40 | P.PN ---
Subjective Progress Note Date: 01/25/25 Hospital course: Patient is a very pleasant 79-year-old male with a past medical history of hypertension, hyperlipidemia, parathyroidectomy, GERD, dementia with mild cognitive decline, and asthma/COPD. He presented to the hospital on 01/23/2025 with a chief complaint of chest pain. Upon arrival to our facility, patient underwent evaluation in the emergency department. Vital signs upon arrival show blood pressure 158/80, heart rate 60, respiratory rate 18, temp 98.9 F, and SpO2 of 98% on room air. EKG completed showing sinus mechanism at 61 bpm with no significant T wave or ST abnormality showing no signs of acute ischemia upon personal review and interpretation. Chest x-ray completed and was negative for acute cardiopulmonary process. Labs completed and reviewed. CBC unremarkable. Coagulation profile normal findings. BMP unremarkable. Blood glucose 83. Magnesium 2.0. Calcium 9.4. Liver profile unremarkable. Patient mated under services with consultation to cardiology. Troponins trended overnight all negative at less than 0.012 x 3 draws. Lipid profile unremarkable with exc eption of low HDL of 34.70. Hemoglobin A1c 6.1%. TSH 2.00. Repeat EKG completed this morning showing sinus bradycardia at 55 bpm with new onset inferiolateral T wave inversion in leads II, III, aVF, V5 and V6. Physical exam: Patient was seen and fully evaluated at bedside this morning. He reports doing well and denies any further episodes of chest pain or discomfort. He just returned from stress testing. Patient reports that he is looking forward to discharge if stress test is negative. He denies having any other questions, needs, concerns, or complaints Vital signs reviewed and stable. General: Nontoxic, no distress and appears stated age. Derm: Skin warm and dry, normal coloration for ethnicity. Head: Atraumatic, normocephalic and symmetric. Eyes: EOM's intact, no lid lag, and anicteric sclera Mouth: no lip lesions, mucus membranes moist Cardiovascular: regular rate and rhythm with normal S1S2, systolic murmur, positive posterior tibial pulses bilaterally, and cap refill < 2 seconds. Lungs: Respirations even, regular, and unlabored on room air. Lungs CTA bilaterally, no rhonchi, no rales, no wheezing, and no accessory muscle usage. Abdominal: soft, nontender to palpation, no guarding, no appreciable organomegaly Ext: ROM intact. No gross muscle atrophy, no edema, no contractures Neuro: Speech clear, face symmetrical and CN II-XII grossly intact with no noted focal neuro deficits Psych: Alert and oriented to person, place, time, and situation. Appropriate and pleasant affect. Assessment and Plan of Care: Atypical Chest Pain, rule out acute coronary event New onset EKG changes Hypertension Hyperlipidemia -Cardiology consulted, appreciate recommendations -Telemetry monitoring -Troponins trended overnight all negative at less than 0.012 x 3 draws. Lipid profile unremarkable with exception of low HDL of 34.70. Hemoglobin A1c 6.1%. TSH 2.00. -Initial EKG completed showing sinus mechanism at 61 bpm with no significant T wave or ST abnormality showing no signs of acute ischemia. Repeat EKG completed this morning showing sinus bradycardia at 55 bpm with new onset inferiolateral T wave inversion in leads II, III, aVF, V5 and V6. -Continue cardiac medication regimen with aspirin 81 mg daily, atorvastatin 80 mg nightly, and lisinopril/hydrochlorothiazide 20/12.5 mg daily. Dementia with mild cognitive decline Continue Aricept 10 mg daily and Namenda 5 mg daily. Asthma/COPD, not in acute exacerbation. Continue Ventolin nebulizer treatments every 6 hours as needed for shortness of breath and/or wheezing. Data and imaging reviewed: Morning labs reviewed. CBC unremarkable. BMP normal findings. Blood glucose 105. Calcium 9.3. Magnesium 2.1. Vital signs reviewed. Blood pressure 115/74, heart rate 56, respiratory rate 18, temp 97.9 F, and SpO2 of 97% on room air. CODE STATUS: Full code DVT prophylaxis: Lovenox Anticipated discharge date: Pending clinical course Anticipated discharge place: Home Patient was seen independently by Nurse Pracitioner. This document was prepared using [employer] dictation software. Please allow for errors in municipal court magistrate, while rare they do occur. Aaron Herron NP rendered care for this patient independently, reviewed the findings and plan as documented in the note above and agree with plan. I did not physically speak with or examine the patient on this date. Objective - Vital Signs Vital signs: Vital Signs Temp 97.9 F 01/25/25 05:46 Pulse 56 L 01/25/25 08:00 Resp 18 01/25/25 08:00 BP 115/74 01/25/25 05:46 Pulse Ox 97 01/25/25 08:16 FiO2 Intake & Output 01/24/25 01/25/25 01/25/25 18:59 06:59 18:59 Weight 106.594 kg Other: # Voids 2 - Labs CBC & Chem 7: 01/25/25 05:49 01/25/25 05:49 Labs: Abnormal Lab Results - Last 24 Hours (Table) 01/24/25 01/24/25 Range/Units 02:00 02:00 Hemoglobin A1c 6.1 H (<=6.0) % HDL Cholesterol 34.70 L (40.00-60.00) mg/dL
[2025-01-25 15:04] VITALS: BP 119/73; PULSE 62; TEMP 98
--- NOTE | 2025-01-26 10:51 | CA ---
Transthoracic Echo Report Name: Rahul Diaz Age: 79 Gender: M : 1945 Exam Date: 01/25/2025 12:17 Exam Location: [facility] Ht (in): 73 Wt (lb): 235 Ordering Physician: Manolo Martin MD ([id number]) Attending/Referring Phys: Verification Rep Dalton Hayes RDCS Procedure CPT: Indications: cardiomyopathy Cardiac Hx: Limited for cardiomyopathy Technical Quality: Technically difficult study Contrast 1: Definity Total Dose (mL): 2 Contrast 2: Total Dose (mL): MEASUREMENTS (Male / Female) Normal Values 2D ECHO LV Diastolic Diameter PLAX 4.9 cm 4.2 - 5.9 / 3.9 - 5.3 cm LV Systolic Diameter PLAX 3.1 cm IVS Diastolic Thickness 0.9 cm 0.6 - 1.0 / 0.6 - 0.9 cm LVPW Diastolic Thickness 1.0 cm 0.6 - 1.0 / 0.6 - 0.9 cm LV Relative Wall Thickness 0.4 RV Internal Dim ED PLAX 3.0 cm LA Systolic Diameter LX 3.7 cm 3.0 - 4.0 / 2.7 - 3.8 cm LV Diastolic Volume MOD BP 132.7 cm??? 67 - 155 / 56 - 104 cm??? LV Systolic Volume MOD BP 48.5 cm??? 22 - 58 / 19 - 49 cm??? LV Ejection Fraction MOD BP 63.5 % >= 55 % LV Cardiac Index MOD BP 2026.6 cm???/min???m??? LV Diastolic Volume MOD 4C 135.5 cm??? LV Systolic Volume MOD 4C 49.7 cm??? LV Ejection Fraction MOD 4C 63.3 % LV Cardiac Index MOD 4C 2064.6 cm???/min???m??? LV Diastolic Length 4C 8.6 cm LV Systolic Length 4C 7.4 cm LV Diastolic Volume MOD 2C 128.0 cm??? LV Systolic Volume MOD 2C 47.0 cm??? LV Ejection Fraction MOD 2C 63.2 % LV Cardiac Index MOD 2C 1947.3 cm???/min???m??? LV Diastolic Length 2C 8.7 cm LV Systolic Length 2C 7.3 cm DOPPLER AV Peak Velocity 239.0 cm/s AV Peak Gradient 22.8 mmHg AV Mean Velocity 156.8 cm/s AV Mean Gradient 11.1 mmHg AV Velocity Time Integral 55.7 cm MV Area PHT 2.7 cm??? Mitral E Point Velocity 79.2 cm/s Mitral A Point Velocity 70.5 cm/s Mitral E to A Ratio 1.1 MV Deceleration Time 285.5 ms TR Peak Velocity 239.9 cm/s TR Peak Gradient 23.0 mmHg Right Atrial Pressure 10.0 mmHg Pulmonary Artery Systolic Pressu 33.0 mmHg Right Ventricular Systolic Press 33.0 mmHg FINDINGS Left Ventricle Left ventricular ejection fraction is estimated at 60 %. Normal left ventricular systolic function with no obvious regional wall motion abnormalities. Left ventricular cavity size normal. Left ventricular wall thickness normal. Right Ventricle Right ventricular dilatation. Right ventricular systolic pressure within normal limits. Right Atrium Left Atrium Mitral Valve Structurally normal mitral valve. No mitral stenosis. Trace mitral regurgitation. Aortic Valve Trileaflet aortic valve. Diffuse thickening (sclerosis) of the aortic valve cusps without reduced excursion. Mildly velocity across aortic valve which may not be significant drop, probably mild aortic stenosis Tricuspid Valve Structurally normal tricuspid valve. No tricuspid stenosis. Mild tricuspid regurgitation. Pulmonic Valve Pericardium No pericardial effusion. Aorta Aortic annulus normal. CONCLUSIONS Normal LV size and systolic function. Aortic valve sclerosis. Mild mitral and tricuspid regurgitation no pulmonary hypertension no pericardial effusion Previewed by: Dr. Bibiana Samaniego MD (Electronically Signed) Final Date: 26 January 2025 10:50
== END 2025-01-25 15:24 | disposition home or self-care (01) ==
LOC: EC 18:11 → 6NMEDSUR 22:13
PROVIDERS: ADMIT Internal Medicine; ATTEND Internal Medicine
DX: R07.89 Other chest pain (principal); R94.31 Abnormal electrocardiogram [ECG] [EKG]; I10 Essential (primary) hypertension; E78.5 Hyperlipidemia, unspecified; E55.9 Vitamin D deficiency, unspecified; R60.0 Localized edema; F03.90 Unspecified dementia, unspecified severity, without behavioral disturbance, psychotic disturbance, mood disturbance, and anxiety; J44.89 Other specified chronic obstructive pulmonary disease; E03.9 Hypothyroidism, unspecified; E66.9 Obesity, unspecified; K21.9 Gastro-esophageal reflux disease without esophagitis; Z79.899 Other long term (current) drug therapy; Z87.891 Personal history of nicotine dependence; Z88.7 Allergy status to serum and vaccine
CPT/HCPCS: 96372; 99285; 36415; 94760; 93005; 93308; 93351; 83880; 80061; 80053; 80048 ×2; 84443; 82150; 83690; 83735 ×2; 84484 ×2; 85025; 85027 ×2; 85610; 85730; 83036; 71046; G0378 ×3; J1650; Q9957